=== PATIENT | female | born 1965 ===

== ENCOUNTER 2020-06-26 09:30 | Outpatient (REF) | payer OTHER, SELFPAY ==
[2020-06-26 10:08] LABS: MANUAL DIFF FLAG NO
[2020-06-26 10:09] LABS: Basophils Percent Auto 0.6 % (0-2); Eosinophils Absolute Auto 0.3 X10*3/uL (0.0-0.4); Eosinophils Percent Auto 3.9 % (0-4); Hematocrit 41.1 % (37-47); Hemoglobin 13.4 g/dl (12.0-16.0); Imm Gran Abs Auto 0.03 X10*3/uL (0.00-0.03); Imm Gran Pct Auto 0.4 % (0.0-0.4); Lymphocytes Absolute Auto 3.5 X10*3/uL (1.2-4.9); Mean Corpuscular HGB Conc 32.6 g/dl (31.0-35.0); Mean Corpuscular Hemoglobin 30.6 pg (27.0-33.0); Mean Corpuscular Volume 93.8 fL (80-98); Monocytes Absolute Auto 0.5 X10*3/uL (0.1-1.2); Monocytes Percent Auto 6.4 % (2-11); Neutrophils Absolute Auto 2.9 X10*3/uL (2.0-8.3); Neutrophils Percent Auto 40.7 % (45-73); Platelet Count 249 X10*3/uL (160-400); Red Blood Count 4.38 X10*6/uL (4.20-5.50); Red Cell Distribution Width 13.2 % (11.0-16.0); White Blood Count 7.2 X10*3/uL (4.8-10.8)
[2020-06-26 10:56] LABS: Alanine Aminotransferase 33 U/L (0-31); Albumin Level 4.4 g/dL (3.5-5.0); Alkaline Phosphatase 130 U/L (39-117); Anion Gap 16 (12-20); Aspartate Amino Transferase 17 U/L (5-31); Bilirubin Total 0.5 mg/dL (0.0-1.0); Blood Urea Nitrogen 12 mg/dL (9-16); Calcium 9.9 mg/dL (8.4-10.2); Carbon Dioxide 24 mmol/L (22-29); Chloride 104 mmol/L (96-108); Cholesterol 253 mg/dL; Estimated Glomerular Filt Rate > 60; Glucose Fasting 98 mg/dL (60-99); HDL Cholesterol 33 mg/dL; Iron 73 mcg/dL (30-160); Percent Iron Saturation 19 % (15-50); Potassium 4.5 mmol/l (3.3-5.1); Sodium 139 mmol/L (135-145); Total Iron Binding Capacity 379 mcg/dL (228-428); Total Protein 7.6 g/dL (6.5-8.0); Triglycerides 689 mg/dL; Unsaturated Iron Binding 306 ug/dL
[2020-06-26 11:17] LABS: Ferritin 150 ng/mL (10-250); Vitamin D 25-OH Total 17.2 ng/mL (>30)
[2020-06-26 11:52] LABS: Vitamin B12 383 pg/mL (200-900)
== END 2020-06-26 09:31 | disposition home or self-care (01) ==
LOC: HO.LAB 09:30
PROVIDERS: PCP Internal Medicine; Visit Provider Internal Medicine
DX: E78.2 Mixed hyperlipidemia (principal); E53.8 Deficiency of other specified B group vitamins; E55.9 Vitamin D deficiency, unspecified; D50.0 Iron deficiency anemia secondary to blood loss (chronic)
CPT/HCPCS: 36415; 80053; 80061; 82306; 82607; 82728; 82746; 83540; 85025

== ENCOUNTER 2020-07-27 08:38 | Outpatient (REF) | payer OTHER, SELFPAY ==
[2020-07-27 09:01] LABS: MANUAL DIFF FLAG NO
[2020-07-27 09:03] LABS: Basophils Percent Auto 0.4 % (0-2); Eosinophils Absolute Auto 0.3 X10*3/uL (0.0-0.4); Eosinophils Percent Auto 4.7 % (0-4); Hematocrit 41.1 % (37-47); Hemoglobin 13.4 g/dl (12.0-16.0); Imm Gran Abs Auto 0.02 X10*3/uL (0.00-0.03); Imm Gran Pct Auto 0.3 % (0.0-0.4); Lymphocytes Absolute Auto 3.1 X10*3/uL (1.2-4.9); Lymphocytes Percent Auto 44.6 % (20-40); Mean Corpuscular HGB Conc 32.6 g/dl (31.0-35.0); Mean Corpuscular Hemoglobin 30.7 pg (27.0-33.0); Mean Corpuscular Volume 94.1 fL (80-98); Mean Platelet Volume 11.3 fL (9.4-12.3); Monocytes Absolute Auto 0.4 X10*3/uL (0.1-1.2); Monocytes Percent Auto 5.7 % (2-11); Neutrophils Absolute Auto 3.1 X10*3/uL (2.0-8.3); Neutrophils Percent Auto 44.3 % (45-73); Platelet Count 277 X10*3/uL (160-400); Red Blood Count 4.37 X10*6/uL (4.20-5.50); Red Cell Distribution Width 12.5 % (11.0-16.0); White Blood Count 6.9 X10*3/uL (4.8-10.8)
[2020-07-27 09:23] LABS: Alanine Aminotransferase 40 U/L (0-31); Albumin Level 4.6 g/dL (3.5-5.0); Alkaline Phosphatase 133 U/L (39-117); Anion Gap 14 (12-20); Aspartate Amino Transferase 21 U/L (5-31); Bilirubin Total 0.3 mg/dL (0.0-1.0); Blood Urea Nitrogen 11 mg/dL (9-16); Calcium 9.8 mg/dL (8.4-10.2); Carbon Dioxide 24 mmol/L (22-29); Chloride 104 mmol/L (96-108); Cholesterol 173 mg/dL; Estimated Glomerular Filt Rate > 60; Glucose Fasting 115 mg/dL (60-99); HDL Cholesterol 31 mg/dL; LDL Cholesterol Calculated 68 mg/dl; Potassium 4.4 mmol/l (3.3-5.1); Sodium 138 mmol/L (135-145); Total Protein 7.6 g/dL (6.5-8.0); Triglycerides 370 mg/dL
[2020-07-27 10:11] LABS: Folate 11.1 ng/mL (> or = 4.0); Vitamin B12 680 pg/mL (200-900)
[2020-07-27 10:38] LABS: Creatinine Urine 33.32 mg/dL
[2020-07-30 14:12] LABS: Vitamin D 25-OH, D2 16 ng/mL; Vitamin D 25-OH, D3 11 ng/mL; Vitamin D 25-OH, Total 27 ng/mL (30-100)
[2020-08-02 13:28] LABS: Apolipoprotein B 97 mg/dL (<90)
[2020-08-05 16:22] LABS: Lipoprotein A 11 nmol/L (<75)
== END 2020-07-27 08:39 | disposition home or self-care (01) ==
LOC: HO.LAB 08:38
PROVIDERS: PCP Internal Medicine; Visit Provider Internal Medicine
DX: E11.9 Type 2 diabetes mellitus without complications (principal); E78.2 Mixed hyperlipidemia; E53.8 Deficiency of other specified B group vitamins; E78.5 Hyperlipidemia, unspecified; E55.9 Vitamin D deficiency, unspecified
CPT/HCPCS: 36415; 80053; 80061; 82043; 82172; 82306; 82607; 82746; 83695; 85025

== ENCOUNTER → 2020-08-02 09:36 | Outpatient (BNVA) | payer OTHER, SELFPAY | PROVIDERS: PCP Internal Medicine; Visit Provider Internal Medicine | DX: I35.8 Other nonrheumatic aortic valve disorders (principal); E78.2 Mixed hyperlipidemia; E11.8 Type 2 diabetes mellitus with unspecified complications | CPT/HCPCS: 93005; 99202 ==

== ENCOUNTER → 2020-09-01 07:59 | Outpatient (REF) | payer OTHER, SELFPAY ==
--- NOTE | 2020-09-01 08:03 | CA_ITS ---
Transthoracic Echocardiogram Patient (Last, First, Middle): Padma Castro, Gender: Female Date of : 1965 Age: 55 Procedure Date: 09/01/2020 Procedure Type: Transthoracic Echocardiogram Location: OP Height: 157.48 cm Weight: 93.9 kg BSA: 1.94 m2 Heart Rate: bpm BP: 122 / 80 mmHg Instructor Pilot: LAKE Referring MD: Shravan Dunn MD Radar Signal Processing Engineer: Steve Murillo MD Symptoms: I25.10 - Atherosclerotic heart disease of [place] coronary artery without angina pectoris Study Quality: Fair ECG Rhythm: Sinus Conclusions: - Essentially normal study Findings Procedure Information Contrast agent, definity, is being given per protocol without apparent complications. Left Ventricle Normal left ventricular size, thickness, and systolic function. The visually estimated ejection fraction is between 65-70%. Diastolic function is normal for age. Right Ventricle Normal right ventricular cavity size and systolic function. Atria Both atria are normal in size. There is no evidence of interatrial shunt. Aortic Valve Normal aortic valve structure and function. There is no aortic valve stenosis. There is no aortic valve regurgitation. Mitral Valve Normal mitral valve structure and function. There is trace mitral valve regurgitation. There is no mitral valve stenosis. Pulmonic Valve The pulmonic valve was not well visualized. Tricuspid Valve Likely normal tricuspid valve structure and function. Tricuspid regurgitation envelope is inadequate for calculation of right ventricular systolic pressure. Great Vessels All visible segments of the aorta are normal in size. The pulmonary artery was not well visualized. Venous The inferior vena cava is normal in size and collapses greater than 50% with inspiration. Pericardium/Pleural There is no evidence of pericardial effusion. Prior Study Comparison No previous study in the last 5 years for comparison Measurements M-Mode Liner Measurements Normals - Women/Men AOV Cusps: 2.10 1.5-2.6 cm/m2 2D Linear Measurements IVSd: 0.85 0.6-0.9/0.6-1.0 cm LVIDd: 4.79 3.9-5.3/4.2-5.9 cm LVIDd Index: 2.47 2.4-3.2/2.2-3.1 cm/m2 LVIDs: 2.31 2.0-3.6 cm LVPWd: 0.94 0.7-1.1 cm Ao Root: 2.70 2.1-3.5 cm LA Diam: 3.40 2.7-3.8/3.0-4.0 cm LAIDs Index: 1.75 1.5-2.3 cm/m2 LV Mass: 181.85 67-162/88-224 g LV Mass Index: 93.74 43-95/49-115 g/m2 LVOT Diam: 2.40 3.0+(-)1.3 cm 2D Systolic Function EF 4C: 71.50 >55% EF 2C: 79.10 >55% Mitral Valve MV Pk E: 0.97 MV PK A: 0.89 MV Decel Time: 220.00 E/A: 1.10 E'Lateral: 8.49 E'Medial: 7.83 E/E' Med: 12.40 E/E' Lat: 11.50 PHT: 64.00 MVA PHT: 3.44 Decel Scott: 4.43 Aortic Valve AoV Pk Vishal: 2.04 AoV Pk Grad: 17.00 LVOT LVOT Pk Vishal: 1.09 LVOT Mn Vishal: 0.70 LVOT VTI: 0.22 LVOT Pk Grad: 5.00 LVOT Mn Grad: 2.00 LVOT Diam: 2.40 LVOT Area: 4.52 Diastolic Function MV Pk E: 0.97 MV Pk A: 0.89 E/A: 1.10 E'Medial: 7.83 E/E' Med: 12.40 E' Laterial: 8.49 E/E' Lat: 11.50 Great Vessels Aorta Ao Root-2D: 2.70 2.0-3.7 cm Ao Asc: 3.70 2.1-3.4 cm Ao Arch: 2.30 Pulmonary Valve PV Pk Vishal: 1.44 Peak PV Grad: 8.00 Updated in Other Vendor System with Status of Final Steve Murillo MD electronically signed on 09/02/2020 11:00:22 AM with status of Final
--- NOTE | 2020-09-01 08:03 | CA_ITS ---
Acquisition Time: 2020-09-01 10:18:29 Total Exercise Time: 00:01:47 Test Indications: e11.9 Medications: SEE CHART Protocol: ADAM Max HR: 141 BPM 85% of Pred: 165 BPM Max BP: 160/070 mmHG Max Work Load: 4.1 METS Pt unable to finish the test as she became SOB and very tired. Pt requested to terminate the test. Pt exercised for total of 1 min 47 sec. This is inconclusive stress test I will order pharmacological stress test. discussed it with Dr. Dunn Referred By: Shravan Dunn Overread By: Meliton Seymour
== END ==
LOC: HO.CARD 07:59
PROVIDERS: Visit Provider Internal Medicine
DX: I25.10 Atherosclerotic heart disease of native coronary artery without angina pectoris (principal); E11.9 Type 2 diabetes mellitus without complications
CPT/HCPCS: 93017; 93306; Q9957

== ENCOUNTER → 2020-09-13 09:27 | Outpatient (REF) | payer OTHER, SELFPAY ==
--- NOTE | ~2020-09-13 | NM_ITS ---
Lexiscan Myocardial perfusion study Indication: Diabetes, dyslipidemia, assess for coronary disease and ischemia Technique: The patient was brought in for a Lexiscan perfusion study on 09/13/2020 and was injected 0.4 mg of Lexiscan intravenously. Within a minute of this injection 30 mCi of sestamibi was given intravenously. Images were obtained using the SPECT gamma camera interlaced with the gating device. Images were obtained in supine position. Resting perfusion study was performed on 09/14/2020. Patient was administered 30 mCi of sestamibi intravenously at rest. Images were then obtained in supine position. Total DLP 87mGy-cm. Images were processed with the software and compared side to side in short axis, horizontal long axis and vertical long axis views. Findings: Raw acquisition was reviewed. The stress perfusion study showed no significant perfusion abnormality. Both uncorrected as well as CT attenuation corrected images were reviewed. The gated study shows normal LV systolic function with calculated LVEF of 68%. LV cavity is normal in size. The gated study shows normal wall thickening and contraction of segments. Resting study shows no significant perfusion abnormality. Gating at rest reveals normal wall motion with ejection fraction at 75%. The findings are consistent with no reversible or fixed perfusion abnormality. NM/NM vikas perf SPECT rest & str Impression: 1. Myocardial perfusion imaging study shows normal myocardial perfusion. 2. Gated LVEF is 68% during stress and 75% during rest. 3. Transient ischemic dilatation not present. EKG component of the test reported separately.
--- NOTE | 2020-09-13 09:30 | CA_ITS ---
Acquisition Time: 2020-09-13 09:41:39 Total Exercise Time: 00:02:00 Test Indications: I25.10, E11.8 Medications: SEE CHART Protocol: LEXISCAN Max HR: 109 BPM 66% of Pred: 165 BPM Max BP: 134/076 mmHG Max Work Load: 1.0 METS Pharmacological stress test with Lexiscan injection, while sitting and kicking her legs, without anginal symptoms, with isolated PACs and one 3 beat atrial run, with normotensive response to injection, with nondiagnostic EKG for ischemia. In recovery she reported body aches that persisted even after 7 min and she was given Aminophylline 75mg IVP to reverese Lexiscan with improvement in symptom. Nuclear images pending. Test reviewed with Dr Murillo. Referred By: Dawn Lawler Overread By: GAURI MCCARTNEY
== END ==
LOC: HO.CARD 09:27
PROVIDERS: Visit Provider Nurse Practitioner Family
DX: I25.10 Atherosclerotic heart disease of native coronary artery without angina pectoris (principal); E11.8 Type 2 diabetes mellitus with unspecified complications
CPT/HCPCS: 78452; 93017; A9500; J0280; J2785

== ENCOUNTER → 2020-09-14 13:21 | Outpatient (BNVA) | payer OTHER, SELFPAY | PROVIDERS: PCP Internal Medicine; Visit Provider Internal Medicine | DX: E78.2 Mixed hyperlipidemia (principal); E11.8 Type 2 diabetes mellitus with unspecified complications | CPT/HCPCS: 99212 ==

== ENCOUNTER 2020-11-21 10:06 | Outpatient (REF) | payer OTHER, SELFPAY ==
--- NOTE | ~2020-11-21 | XR_ITS ---
EXAMINATION: XR BILATERAL KNEE CLINICAL INFORMATION: Bilateral knee pain. COMPARISON: None. TECHNIQUE: 4 views each knee. FINDINGS: Right Knee: There is mild reduction in the medial and patellofemoral compartment joint space without any bony erosive changes or loose bodies. There is mild superior patellar spurring. No abnormal joint effusion seen. Left Knee: There is mild reduction in the medial and patellofemoral compartment joint space with superior patellar spurring. No loose bodies, joint effusion or bony erosive changes seen. XR/XR knee LT 4V IMPRESSION: Mild degenerative changes medial and patellofemoral compartments without bony erosive changes, loose bodies or joint effusion. There is mild bilateral superior patellar spurring.
--- NOTE | ~2020-11-21 | XR_ITS ---
EXAMINATION: XR BILATERAL KNEE CLINICAL INFORMATION: Bilateral knee pain. COMPARISON: None. TECHNIQUE: 4 views each knee. FINDINGS: Right Knee: There is mild reduction in the medial and patellofemoral compartment joint space without any bony erosive changes or loose bodies. There is mild superior patellar spurring. No abnormal joint effusion seen. Left Knee: There is mild reduction in the medial and patellofemoral compartment joint space with superior patellar spurring. No loose bodies, joint effusion or bony erosive changes seen. XR/XR knee RT 4V IMPRESSION: Mild degenerative changes medial and patellofemoral compartments without bony erosive changes, loose bodies or joint effusion. There is mild bilateral superior patellar spurring.
== END 2020-11-21 10:07 | disposition home or self-care (01) ==
LOC: HO.XRAY 10:06
PROVIDERS: PCP Internal Medicine; Visit Provider Internal Medicine
DX: M25.562 Pain in left knee (principal); M25.561 Pain in right knee
CPT/HCPCS: 73564

== ENCOUNTER 2021-01-23 09:40 | Outpatient (REF) | payer OTHER, SELFPAY ==
[2021-01-23 10:20] LABS: MANUAL DIFF FLAG NO
[2021-01-23 10:28] LABS: Basophils Percent Auto 0.7 % (0-2); Eosinophils Absolute Auto 0.4 X10*3/uL (0.0-0.4); Hematocrit 42.7 % (37-47); Hemoglobin 13.9 g/dl (12.0-16.0); Imm Gran Abs Auto 0.02 X10*3/uL (0.00-0.03); Imm Gran Pct Auto 0.4 % (0.0-0.4); Lymphocytes Percent Auto 54.8 % (20-40); Mean Corpuscular HGB Conc 32.6 g/dl (31.0-35.0); Mean Corpuscular Hemoglobin 30.4 pg (27.0-33.0); Mean Corpuscular Volume 93.4 fL (80-98); Mean Platelet Volume 11.5 fL (9.4-12.3); Monocytes Absolute Auto 0.3 X10*3/uL (0.1-1.2); Monocytes Percent Auto 6.1 % (2-11); Neutrophils Absolute Auto 1.7 X10*3/uL (2.0-8.3); Platelet Count 270 X10*3/uL (160-400); Red Blood Count 4.57 X10*6/uL (4.20-5.50); Red Cell Distribution Width 12.4 % (11.0-16.0); White Blood Count 5.6 X10*3/uL (4.8-10.8)
[2021-01-23 11:04] LABS: Alanine Aminotransferase 43 U/L (0-31); Albumin Level 4.8 g/dL (3.5-5.0); Alkaline Phosphatase 124 U/L (39-117); Anion Gap 15 (12-20); Aspartate Amino Transferase 26 U/L (5-31); Bilirubin Total 0.5 mg/dL (0.0-1.0); Blood Urea Nitrogen 12 mg/dL (9-16); Carbon Dioxide 22 mmol/L (22-29); Chloride 107 mmol/L (96-108); Cholesterol 209 mg/dL; Estimated Glomerular Filt Rate > 60; Glucose Fasting 110 mg/dL (60-99); HDL Cholesterol 40 mg/dL; Potassium 4.9 mmol/L (3.3-5.1); Sodium 139 mmol/L (135-145); Total Protein 8.1 g/dL (6.5-8.0); Triglycerides 414 mg/dL
[2021-01-23 11:10] LABS: Calcium 10.6 mg/dL (8.4-10.2)
[2021-01-23 11:17] LABS: Folate 17.1 ng/mL (> or = 4.0); Vitamin B12 365 pg/mL (200-900)
[2021-01-23 12:10] LABS: Creatinine Urine 38.62 mg/dL
[2021-01-27 19:32] LABS: Vitamin D 25-OH, D2 14 ng/mL; Vitamin D 25-OH, D3 11 ng/mL; Vitamin D 25-OH, Total 25 ng/mL (30-100)
== END 2021-01-23 09:41 | disposition home or self-care (01) ==
LOC: HO.LAB 09:40
PROVIDERS: PCP Internal Medicine; Visit Provider Internal Medicine
DX: E11.8 Type 2 diabetes mellitus with unspecified complications (principal); D64.9 Anemia, unspecified; E53.8 Deficiency of other specified B group vitamins; E78.5 Hyperlipidemia, unspecified; E55.9 Vitamin D deficiency, unspecified
CPT/HCPCS: 36415; 80053; 80061; 82043; 82306; 82607; 82746; 85025

== ENCOUNTER 2021-09-26 08:52 | Outpatient (REF) | payer OTHER, SELFPAY ==
[2021-09-26 10:13] LABS: Hematocrit 42.9 % (37.0-47.0); Hemoglobin 13.6 g/dl (12.0-16.0); Mean Corpuscular HGB Conc 31.7 g/dl (31.0-35.0); Mean Corpuscular Hemoglobin 29.7 pg (27.0-33.0); Mean Corpuscular Volume 93.7 fL (80.0-98.0); Mean Platelet Volume 11.9 fL (9.4-12.3); Platelet Count 241 X10*3/uL (160-400); Red Blood Count 4.58 X10*6/uL (4.20-5.50); Red Cell Distribution Width 12.7 % (11.0-16.0); White Blood Count 5.5 X10*3/uL (4.8-10.8)
[2021-09-26 10:54] LABS: Alanine Aminotransferase 50 U/L (0-31); Albumin Level 4.7 g/dL (3.5-5.0); Alkaline Phosphatase 105 U/L (39-117); Anion Gap 15 (12-20); Aspartate Amino Transferase 35 U/L (5-31); Bilirubin Total 0.4 mg/dL (0.0-1.0); Blood Urea Nitrogen 14 mg/dL (9-16); Calcium 10.6 mg/dL (8.4-10.2); Carbon Dioxide 25 mmol/L (22-29); Chloride 102 mmol/L (96-108); Cholesterol 308 mg/dL; Estimated Glomerular Filt Rate > 60; Glucose Fasting 137 mg/dL (60-99); HDL Cholesterol 39 mg/dL; Sodium 137 mmol/L (135-145); Triglycerides 799 mg/dL
[2021-09-26 11:01] LABS: TSH reflex Free T4 0.51 uIU/mL (0.32-4.0)
== END 2021-09-26 08:53 | disposition home or self-care (01) ==
LOC: HO.LAB 08:52
PROVIDERS: PCP Physician Assistant; Visit Provider Physician Assistant
DX: E11.8 Type 2 diabetes mellitus with unspecified complications (principal)
CPT/HCPCS: 36415; 80053; 80061; 84443; 85027

== ENCOUNTER → 2021-11-13 10:46 | Outpatient (BNVA) | payer OTHER, SELFPAY | PROVIDERS: PCP Internal Medicine; Visit Provider Internal Medicine Endocrinology, Diabetes & Metabolism | DX: E78.2 Mixed hyperlipidemia (principal); Z79.899 Other long term (current) drug therapy | CPT/HCPCS: 99202 ==

== ENCOUNTER → 2021-12-19 11:15 | Outpatient (BNVA) | payer OTHER, SELFPAY | PROVIDERS: PCP Internal Medicine; Visit Provider Dietitian, Registered | DX: E11.8 Type 2 diabetes mellitus with unspecified complications (principal) | CPT/HCPCS: 97802 ==

== ENCOUNTER → 2021-12-26 12:25 | Outpatient (BNVA) | payer OTHER, SELFPAY | PROVIDERS: PCP Internal Medicine; Referring Provider Internal Medicine; Visit Provider Internal Medicine | DX: R07.2 Precordial pain (principal); E11.9 Type 2 diabetes mellitus without complications; E66.01 Morbid (severe) obesity due to excess calories; Z68.41 Body mass index [BMI] 40.0-44.9, adult; E78.2 Mixed hyperlipidemia; F17.210 Nicotine dependence, cigarettes, uncomplicated | CPT/HCPCS: 93005; 99212 ==

== ENCOUNTER → 2022-01-09 09:45 | Outpatient (REF) | payer OTHER, SELFPAY ==
--- NOTE | ~2022-01-09 | NM_ITS ---
Myocardial perfusion study Indication: Precordial chest pain Technique: The patient was brought in for a Lexiscan perfusion study on 01/09/2022. Patient performed low-level exercise and was injected 0.4 mg of Lexiscan intravenously. Within a minute of injection, 35 mCi of sestamibi was given intravenously. Images were obtained using the SPECT gamma camera interlaced with the gating device. Images were obtained in supine position. Resting perfusion study was performed on 01/10/2022. Patient was administered 35 mCi of sestamibi intravenously at rest. Images were then obtained in supine position. Images obtained with and without CT attenuation. Total DLP 103 mGy-cm. Images were processed with the software and compared side to side in short axis, horizontal long axis and vertical long axis views. Findings: The stress perfusion study showed non attenuated images show minimal thinning of the anterior wall of the LV myocardium. Remainder of the LV myocardium is normally perfused. Attenuation corrected images show normal uptake of radiotracer in all segments of LV myocardium. There is suggestion of left ventricle hypertrophy. The gated study shows normal LV systolic function with calculated LVEF of 68%. LV cavity is normal in size. The gated study shows normal systolic wall thickening and contraction of segments. Resting study shows no significant change in perfusion compared to stress perfusion study. Gating at rest reveals normal systolic wall motion with ejection fraction at 67%. The findings are consistent with normal myocardial perfusion. NM/NM cardiolite stress test Impression: 1. Myocardial perfusion imaging study shows normal myocardial perfusion 2. Gated LVEF is 68% 3. Transient ischemic dilatation not present EKG is nondiagnostic for ischemia
--- NOTE | 2022-01-09 09:50 | CA_ITS ---
Acquisition Time: 2022-01-09 09:49:22 Total Exercise Time: 00:02:00 Test Indications: cp Medications: see chart Protocol: LEXISCAN Max HR: 144 BPM 87% of Pred: 164 BPM Max BP: 138/068 mmHG Max Work Load: 1.6 METS Pharmacological stress test with Lexiscan injectiion, while walking slow on treadmill for 2 min, without anginal symptoms, with isolated PAC, one atrial cuplet then PVC, with normotensive response to injection, with heart rate reaching 87% MPHR without ischemic changes noted. In recovery she reported dizziness that was treated with Aminophylline 75mg IVP to reverse Lexican with resolution of symptom. Nuclear images pending. Note: test was ordered as exercise nuclear and pt report she is unable to exercise on treadmill due to bilateral knee arthritis, so it was changed to a pharmacological test. test reviewed with Dr Murillo. Referred By: Shravan Dunn Overread By: GAURI MCCARTNEY
== END ==
LOC: HO.CARD 09:45
PROVIDERS: Visit Provider Internal Medicine
DX: R07.2 Precordial pain (principal)
CPT/HCPCS: 78452; 93017; A9500; J0280; J2785

== ENCOUNTER → 2022-02-01 10:13 | Outpatient (REF) | payer OTHER, SELFPAY ==
--- NOTE | 2022-02-01 10:16 | CA_ITS ---
Transthoracic Echocardiogram Patient (Last, First, Middle): Padma Castro, Gender: Female Date of : 1965 Age: 56 Procedure Date: 02/01/2022 Procedure Type: Transthoracic Echocardiogram Location: OP Height: 157.48 cm Weight: 100.7 kg BSA: 2.00 m2 Heart Rate: bpm BP: 120 / 76 mmHg Customer Service Driver: TO Referring MD: Shravan Dunn MD Color Tester: Steve Murillo MD Symptoms: R07.2 - Precordial pain Study Quality: Fair/Contrast ECG Rhythm: Sinus Conclusions: - 1. Normal LV systolic function with impaired relaxation filling pattern 2. Cardiac valvular Doppler within normal limits 3. Mildly dilated ascending aorta at 4 cm 4. Dhruman3% No gross pericardial effusion Findings Procedure Information Contrast agent, definity, is being given per protocol without apparent complications. Left Ventricle Normal left ventricular size, thickness, and systolic function. The visually estimated ejection fraction is between 60-65%. Spectral Doppler is indicative of an impaired relaxation filling pattern. E/E prime ratio is between 8 and 15 consistent with indeterminate filling pressures. Right Ventricle Normal right ventricular cavity size and systolic function. Atria The left atrium is likely dilated. There is lipomatous hypertrophy of the interatrial septum. Interatrial shunt cannot be excluded. The right atrium is likely dilated. Aortic Valve The aortic valve was not well visualized. There is no aortic valve stenosis. There is no aortic valve regurgitation. Mitral Valve There is mild anterior mitral leaflet thickening. There is mild mitral annular calcification. There is trace mitral valve regurgitation. There is no mitral valve stenosis. Pulmonic Valve The pulmonic valve was not well visualized. Tricuspid Valve Likely normal tricuspid valve structure and function. Tricuspid regurgitation envelope is inadequate for calculation of right ventricular systolic pressure. Normal right atrial pressure. Great Vessels The pulmonary artery was not well visualized. There is mild dilatation of the ascending aorta measuring 4.00 cm. Venous The inferior vena cava is normal in size and collapses greater than 50% with inspiration. Pericardium/Pleural There is no evidence of pericardial effusion. Prior Study Comparison Changes noted compared to prior study dated: 09/01/2020. ascending aorta is mildly dilated Measurements 2D Linear Measurements IVSd: 1.02 0.6-0.9/0.6-1.0 cm LVIDd: 5.02 3.9-5.3/4.2-5.9 cm LVIDd Index: 2.51 2.4-3.2/2.2-3.1 cm/m2 LVIDs: 2.60 2.0-3.6 cm LVPWd: 1.05 0.7-1.1 cm LA Diam: 3.90 2.7-3.8/3.0-4.0 cm LAIDs Index: 1.95 1.5-2.3 cm/m2 LV Mass: 239.09 67-162/88-224 g LV Mass Index: 119.55 43-95/49-115 g/m2 LVOT Diam: 2.00 3.0+(-)1.3 cm 2D Systolic Function EF 4C: 58.60 >55% EF 2C: 68.20 >55% EF BiP: 63.50 >55% Mitral Valve MV Pk E: 0.81 MV PK A: 0.85 MV Decel Time: 258.00 E/A: 1.00 E'Lateral: 8.16 E'Medial: 6.09 E/E' Med: 13.20 E/E' Lat: 9.90 PHT: 75.00 MVA PHT: 2.93 Decel Reagan: 3.13 Aortic Valve AoV Pk Vishal: 1.99 AoV Mn Vishal: 1.38 AoV VTI: 0.38 AoV Pk Grad: 16.00 Aov Mn Grad: 9.00 ILANA Cont.VTI: 2.37 LVOT LVOT Pk Vishal: 1.53 LVOT Mn Vishal: 1.00 LVOT VTI: 0.28 LVOT Pk Grad: 9.00 LVOT Mn Grad: 5.00 LVOT Diam: 2.00 LVOT Area: 3.14 Diastolic Function MV Pk E: 0.81 MV Pk A: 0.85 E/A: 1.00 E'Medial: 6.09 E/E' Med: 13.20 E' Laterial: 8.16 E/E' Lat: 9.90 Right Ventricle TAPSE (mm): 22.20 TVS' Vishal: 16.40 Tricuspid Valve TR Pk Vishal: 2.35 TR Pk Grad: 22.00 Great Vessels Aorta Sinus of Valsalva: 3.66 2.0-3.[address] [place]: 2.98 1.7-3.4 cm Ao Asc: 4.00 2.1-3.4 cm Ao Arch: 3.40 Updated in Other Vendor System with Status of Final Steve Murillo MD electronically signed on 02/03/2022 1:00:33 PM with status of Final
== END ==
LOC: HO.CARD 10:13
PROVIDERS: PCP Internal Medicine; Visit Provider Internal Medicine
DX: R07.2 Precordial pain (principal)
CPT/HCPCS: 93306; Q9957

== ENCOUNTER → 2022-02-08 11:00 | Outpatient (BNVA) | payer OTHER, SELFPAY | PROVIDERS: PCP Internal Medicine; Visit Provider Dietitian, Registered | DX: E11.8 Type 2 diabetes mellitus with unspecified complications (principal); Z71.3 Dietary counseling and surveillance | CPT/HCPCS: 97803 ==

== ENCOUNTER 2022-03-04 07:26 | Outpatient (REF) | payer OTHER, SELFPAY ==
[2022-03-04 08:33] LABS: Alanine Aminotransferase 58 U/L (0-31); Albumin Level 4.9 g/dL (3.5-5.0); Alkaline Phosphatase 107 U/L (39-117); Anion Gap 18 (12-20); Aspartate Amino Transferase 31 U/L (5-31); Bilirubin Total 0.4 mg/dL (0.0-1.0); Blood Urea Nitrogen 14 mg/dL (9-16); Calcium 10.7 mg/dL (8.4-10.2); Carbon Dioxide 22 mmol/L (22-29); Chloride 105 mmol/L (96-108); Cholesterol 239 mg/dL; Estimated Glomerular Filt Rate > 60; Glucose Fasting 155 mg/dL (60-99); HDL Cholesterol 36 mg/dL; Potassium 4.9 mmol/L (3.3-5.1); Sodium 140 mmol/L (135-145); Total Protein 8.2 g/dL (6.5-8.0); Triglycerides 552 mg/dL
[2022-03-04 08:53] LABS: Vitamin D 25-OH Total 28.6 ng/mL (>30)
[2022-03-04 09:05] LABS: Folate 17.9 ng/mL (> or = 4.0); Vitamin B12 322 pg/mL (200-900)
[2022-03-08 13:08] LABS: Apolipoprotein B 132 mg/dL (<90)
[2022-03-12 03:46] LABS: Lipoprotein A <10 nmol/L (<75)
== END 2022-03-04 07:27 | disposition home or self-care (01) ==
LOC: HO.LAB 07:26
PROVIDERS: PCP Internal Medicine; Visit Provider Internal Medicine Endocrinology, Diabetes & Metabolism
DX: E78.2 Mixed hyperlipidemia (principal); E11.9 Type 2 diabetes mellitus without complications; E55.9 Vitamin D deficiency, unspecified; E53.8 Deficiency of other specified B group vitamins
CPT/HCPCS: 36415; 80053; 80061; 82172; 82306; 82607; 82746; 83695

== ENCOUNTER → 2022-03-05 10:00 | Outpatient (BNVA) | payer OTHER, SELFPAY | PROVIDERS: PCP Internal Medicine; Referring Provider Internal Medicine; Visit Provider Internal Medicine | DX: R07.2 Precordial pain (principal); E11.8 Type 2 diabetes mellitus with unspecified complications; E66.01 Morbid (severe) obesity due to excess calories; Z68.41 Body mass index [BMI] 40.0-44.9, adult; E78.2 Mixed hyperlipidemia; I77.89 Other specified disorders of arteries and arterioles; Z79.899 Other long term (current) drug therapy | CPT/HCPCS: 99212 ==

== ENCOUNTER → 2022-03-13 08:41 | Outpatient (BNVA) | payer OTHER, SELFPAY | PROVIDERS: PCP Internal Medicine; Visit Provider Internal Medicine Endocrinology, Diabetes & Metabolism | DX: E78.2 Mixed hyperlipidemia (principal); E11.9 Type 2 diabetes mellitus without complications; Z79.84 Long term (current) use of oral hypoglycemic drugs; Z79.899 Other long term (current) drug therapy | CPT/HCPCS: 83036; 99212 ==

== ENCOUNTER → 2022-03-14 10:37 | Outpatient (BNVA) | payer OTHER, SELFPAY | PROVIDERS: PCP Internal Medicine; Visit Provider Registered Nurse Diabetes Educator | DX: E11.8 Type 2 diabetes mellitus with unspecified complications (principal); E78.2 Mixed hyperlipidemia | CPT/HCPCS: 99211 ==

== ENCOUNTER → 2022-03-29 10:07 | Outpatient (BNVA) | payer OTHER, SELFPAY | PROVIDERS: PCP Internal Medicine; Visit Provider Dietitian, Registered | DX: E11.8 Type 2 diabetes mellitus with unspecified complications (principal) | CPT/HCPCS: 97803 ==

== ENCOUNTER → 2022-04-11 11:00 | Outpatient (BNVA) | payer OTHER, SELFPAY | PROVIDERS: PCP Internal Medicine; Visit Provider Registered Nurse Diabetes Educator | DX: E11.9 Type 2 diabetes mellitus without complications (principal) | CPT/HCPCS: 99211 ==

== ENCOUNTER 2022-04-25 08:10 | Outpatient (REF) | payer OTHER, SELFPAY ==
[2022-04-25 10:31] LABS: Cholesterol 197 mg/dL; HDL Cholesterol 37 mg/dL; LDL Cholesterol Calculated 97 mg/dl; Triglycerides 319 mg/dL
== END 2022-04-25 08:11 | disposition home or self-care (01) ==
LOC: HO.LAB 08:10
PROVIDERS: PCP Internal Medicine; Visit Provider Internal Medicine Endocrinology, Diabetes & Metabolism
DX: E78.2 Mixed hyperlipidemia (principal)
CPT/HCPCS: 36415; 80061

== ENCOUNTER 2022-06-06 09:54 | Outpatient (REF) | payer OTHER, SELFPAY ==
--- NOTE | ~2022-06-06 | US_ITS ---
EXAMINATION: US ABDOMEN COMPLETE CLINICAL INFORMATION: Left upper quadrant pain. COMPARISON: None TECHNIQUE: Real-time imaging of the abdominal viscera. Technically difficult study secondary to body habitus. FINDINGS: PANCREAS: The visualized portions of the pancreas are unremarkable but a large portion of the gland is obscured by bowel gas. ABDOMINAL AORTA: Visualized portions are unremarkable. The distal aorta could not be seen. INFERIOR VENA CAVA: Visualized portions are normal. LIVER: The liver is normal in size. The liver contour is normal. No focal hepatic lesion. There is no intrahepatic biliary duct dilatation seen. GALLBLADDER: Surgically absent. COMMON BILE DUCT: Normal in caliber measuring 0.5 cm in diameter. RIGHT KIDNEY: Normal. No hydronephrosis. No renal calculi or focal parenchymal lesions. The kidney measures 12.6 cm in maximum dimension. LEFT KIDNEY: Normal. No hydronephrosis. No renal calculi or focal parenchymal lesions. The kidney measures 14.3 cm in maximum dimension. SPLEEN: Normal. The spleen measures 11.2 cm in maximum dimension. FREE FLUID: None. US/US abdomen complete IMPRESSION: No significant abnormality is detected.
== END 2022-06-06 09:55 | disposition home or self-care (01) ==
LOC: HO.US 09:54
PROVIDERS: Visit Provider Internal Medicine
DX: R10.12 Left upper quadrant pain (principal)
CPT/HCPCS: 76700

== ENCOUNTER → 2022-07-11 10:26 | Outpatient (BNVA) | payer OTHER, SELFPAY | PROVIDERS: PCP Internal Medicine; Visit Provider Internal Medicine Endocrinology, Diabetes & Metabolism | DX: E78.2 Mixed hyperlipidemia (principal) | CPT/HCPCS: 82947; 83036; 99212 ==

== ENCOUNTER 2022-08-20 09:58 | Outpatient (REF) | payer OTHER, SELFPAY ==
[2022-08-20 11:24] LABS: Alanine Aminotransferase 43 U/L (0-31); Albumin Level 4.6 g/dL (3.5-5.0); Alkaline Phosphatase 95 U/L (39-117); Anion Gap 15 (12-20); Aspartate Amino Transferase 37 U/L (5-31); Bilirubin Total 0.4 mg/dL (0.0-1.0); Blood Urea Nitrogen 14 mg/dL (9-16); Calcium 10.4 mg/dL (8.4-10.2); Carbon Dioxide 26 mmol/L (22-29); Chloride 106 mmol/L (96-108); Cholesterol 212 mg/dL; Estimated Glomerular Filt Rate > 60; Glucose Fasting 104 mg/dL (60-99); HDL Cholesterol 33 mg/dL; LDL Cholesterol Calculated 110 mg/dl; Potassium 4.8 mmol/L (3.3-5.1); Sodium 142 mmol/L (135-145); Total Protein 7.4 g/dL (6.5-8.0); Triglycerides 349 mg/dL
[2022-08-20 11:40] LABS: Folate 15.1 ng/mL (> or = 4.0); Vitamin B12 453 pg/mL (200-900); Vitamin D 25-OH Total 30.5 ng/mL (>30)
[2022-08-20 11:43] LABS: Creatinine Urine 51.47 mg/dL; Microalbum/Creatinine Ratio Ur 11.6 ug/mg cr
== END 2022-08-20 09:59 | disposition home or self-care (01) ==
LOC: HO.LAB 09:58
PROVIDERS: PCP Internal Medicine; Visit Provider Internal Medicine Endocrinology, Diabetes & Metabolism
DX: E78.5 Hyperlipidemia, unspecified (principal); E55.9 Vitamin D deficiency, unspecified; E53.8 Deficiency of other specified B group vitamins; E11.8 Type 2 diabetes mellitus with unspecified complications
CPT/HCPCS: 36415; 80053; 80061; 82043; 82306; 82607; 82746

== ENCOUNTER → 2022-11-12 10:37 | Outpatient (BNVA) | payer OTHER, SELFPAY | PROVIDERS: PCP Internal Medicine; Visit Provider Internal Medicine Endocrinology, Diabetes & Metabolism | DX: E78.2 Mixed hyperlipidemia (principal) | CPT/HCPCS: 99212 ==

== ENCOUNTER 2023-01-31 08:48 | Outpatient (REF) | payer OTHER, SELFPAY ==
[2023-01-31 09:56] LABS: Estimated Average Glucose 103 mg/dL; Hemoglobin A1c % 5.2 %
[2023-01-31 10:43] LABS: Alanine Aminotransferase 47 U/L (0-31); Albumin Level 4.6 g/dL (3.5-5.0); Alkaline Phosphatase 105 U/L (39-117); Anion Gap 13 (12-20); Aspartate Amino Transferase 30 U/L (5-31); Bilirubin Total 0.5 mg/dL (0.0-1.0); Blood Urea Nitrogen 15 mg/dL (9-16); Calcium 10.5 mg/dL (8.4-10.2); Carbon Dioxide 24 mmol/L (22-29); Chloride 107 mmol/L (96-108); Estimated Glomerular Filt Rate > 60; Glucose Fasting 93 mg/dL (60-99); Potassium 4.3 mmol/L (3.3-5.1); Sodium 140 mmol/L (135-145); Total Protein 7.7 g/dL (6.5-8.0)
[2023-01-31 10:46] LABS: Cholesterol 200 mg/dL; HDL Cholesterol 35 mg/dL; LDL Cholesterol Calculated 99 mg/dl; Triglycerides 334 mg/dL
[2023-01-31 11:03] LABS: Vitamin D 25-OH Total 31.9 ng/mL (>30)
[2023-01-31 12:04] LABS: Creatinine Urine 91.68 mg/dL; Microalbum/Creatinine Ratio Ur 11.9 ug/mg cr
== END 2023-01-31 08:49 | disposition home or self-care (01) ==
LOC: HO.LAB 08:48
PROVIDERS: Absent Provider Internal Medicine Endocrinology, Diabetes & Metabolism; PCP Internal Medicine; Visit Provider Internal Medicine
DX: E55.9 Vitamin D deficiency, unspecified (principal); E11.9 Type 2 diabetes mellitus without complications; E66.01 Morbid (severe) obesity due to excess calories; Z68.41 Body mass index [BMI] 40.0-44.9, adult; E78.2 Mixed hyperlipidemia
CPT/HCPCS: 36415; 80053; 80061; 82043; 82306; 83036

== ENCOUNTER 2023-02-05 09:34 | Outpatient (AMB) | payer OTHER, SELFPAY ==
--- NOTE | 2023-02-05 09:40 | A.OFFPC_ITS ---
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: No Accompanied by: Self / Same As Patient Allergies aspirin [Aspirin] Allergy (Mild, Verified 02/05/23 09:58) SWELLING Medication List - Last Reconciled 02/05/23 by Nolvia Bah MD atorvastatin 80 mg PO DAILY 90 days blood sugar diagnostic (FreeStyle Lite Strips) Use 1 test strip twice a day blood sugar diagnostic Use 1 test strip twice a day cholecalciferol (vitamin D3) 50 mcg PO DAILY dulaglutide (Trulicity) 1.5 mg (0.5 mL) subcut QWEEK fenofibrate micronized 200 mg PO DAILY 90 days icosapent ethyl (Vascepa) 2 grams (2 x 1 gram) PO BID lancets Use 1 lancet twice a day as needed metformin ER 500 mg PO BID 90 days pantoprazole 40 mg PO DAILY 90 days pioglitazone 45 mg PO DAILY 90 days simethicone 180 mg PO BID 30 days sucralfate 1 g PO BID 90 days triamcinolone acetonide 0.1% 1 appl topical DAILY 15 days Tobacco use date assessed: 02/05/23 Dental Screening Dental Screen Date: 02/05/23 Did you have a dental visit in the last 12 months?: No Did you have a dental problem in the last 6 months where you did not have access to dental care?: No Was dental information given to patient?: Patient has dentist HPI HPI Comments History of Present Illness Details This is a 57-year-old female with diabetes mellitus type 2, mixed hyperlipidemia, GERD and right knee osteoarthritis that complains of right knee pain that has been aggravated for the past month. She did a twisted movement and felt like something tear in her knee. A1c within goal. LDL close to goal. GERD stable with medications. I will order x-ray of the knee and start her on diclofenac gel. Denies any chest pain or shortness of breath. [facility] Medical History B12 deficiency Diabetes mellitus Hospital discharge follow-up Hypovitaminosis D Iron deficiency anemia Left knee pain Mixed hyperlipidemia Morbid obesity with BMI of 40.0-44.9, adult Precordial chest pain Right knee pain Type 2 diabetes mellitus with unspecified complications Surgical History History of laparoscopic cholecystectomy Family History Father Leukemia Mother Diabetes Hypertension CVD (cardiovascular disease) Sister Throat cancer Social History Housing: Apartment Alcohol intake: never Patient Tobacco Use Status: Current everyday Tobacco user Tobacco use type: Cigarette Cigarettes Per Day: 3 e-Cigarette/Vaping Use: Never Used Second Hand Smoke Exposure: No service: No Current occupational status: disabled Cognitive needs: No Hearing needs: No Vision needs: Yes Questionnaire Thrive Questionnaire Date Thrive assessed: 09/24/22 CHRISTIANO-7 AMB Questionnaire CHRISTIANO-7 Date CHRISTIANO - 7 assessed: 09/24/22 Source: Developed by Drs. Davidson Villarreal, Noreen Diego, Ezekiel Herrera and colleagues, with an educational jaxon from [employer]. Review of Systems Const All systems reviewed & are unremarkable except as noted in HPI and below Eyes Reports no additional complaints, Denies change in vision and Denies other visual disturbances Card Denies chest pain at rest, Denies chest pain with activity, Denies edema, Denies irregular heart rhythm, Denies claudication, Denies dyspnea, Denies dyspnea on exertion, Denies orthopnea, Denies paroxysmal nocturnal dyspnea and Denies slow heart rate Resp Denies cough, Denies dyspnea and Denies dyspnea on exertion GI Denies abdominal pain, Denies change in bowel habits, Denies excessive flatus, Denies nausea and Denies vomiting Denies urinary incontinence, Denies urinary hesitancy and Denies urinary urgency Musc Denies abnormal gait, Denies atrophy, Denies deformity and Denies limited range of motion Skin/Breast Denies bleeding lesions, Denies changing lesions and Denies rash Neuro Denies abnormal gait and Denies lack of coordination Physical exam (Primary Care) Vital Signs: Last Vital Signs BP 118/70 02/05/23 09:41 BMI result Body Mass Index 39.7 Tobacco/Smoking Status: Tobacco use Status Tobacco use date assessed 02/05/23 02/05/23 09:45 Patient Tobacco Use Status Current everyday Tobacco 02/05/23 09:45 Tobacco use type Cigarette 02/05/23 09:40 e-Cigarette/Vaping Use Never Used 02/05/23 09:40 Thrive Assessment: Date of Thrive Assessment Date Thrive assessed 09/24/22 02/05/23 09:40 Eyes General: appearance normal, both eyes and all related structures Eyelids: Yes eyelids normal Conjunctivae: conjunctivae normal Neck Neck: Yes normal visual inspection and Yes supple Resp Effort & Inspection: normal respiratory effort Auscultation: clear to auscultation bilaterally Cardio Jugular venous distension: no JVD Rate: regular rate Rhythm: regular rhythm Heart sounds: S1 normal heart sound present and S2 normal heart sound present Extrem General: Yes full ROM Assessment and Plan Assessment & Plan (1) Type 2 diabetes mellitus with unspecified complications: Code(s): E11.8 - Type 2 diabetes mellitus with unspecified complications Plan: Continue metformin, Actos and Trulicity. A1c goal is equal or less than 7%. (2) Mixed hyperlipidemia: Code(s): E78.2 - Mixed hyperlipidemia Plan: Continue statins. LDL goal less than 70. (3) GERD (gastroesophageal reflux disease): Code(s): K21.9 - Gastro-esophageal reflux disease without esophagitis Qualifiers: Esophagitis presence: without esophagitis Qualified Code(s): K21.9 - Gastro-esophageal reflux disease without esophagitis Plan: Continue PPIs (4) Osteoarthritis of right knee: Code(s): M17.11 - Unilateral primary osteoarthritis, right knee Qualifiers: Osteoarthritis type: primary Qualified Code(s): M17.11 - Unilateral primary osteoarthritis, right knee Plan: Start diclofenac gel Orders: Orders XR knee RT 2V Today M25.561 - Pain in right knee Lipid Panel 4 Months E78.5 - Hyperlipidemia, unspecified Microalbumin, Random (w Creat) 4 Months E11.9 - Type 2 diabetes mellitus without complications Vitamin D 25-OH Total 4 Months E55.9 - Vitamin D deficiency, unspecified Vitamin B12 and Folate 4 Months E53.8 - Deficiency of other specified B group vitamins Comprehensive [place]. Panel Fast 4 Months E11.8 - Type 2 diabetes mellitus with unspecified complications Referrals Orthopedics Referral M25.561 - Pain in right knee Medications: New diclofenac sodium 1% (Arthritis Pain (diclofenac)) apply to single elbow, wrist or hand; for hand includes palm/fingers/back of hand 2 grams topical QID 30 days PRN 100 grams 1RF pain Coding Level of Care Code Est Pt Level 4 (23527) Diagnoses Type 2 diabetes mellitus with unspecified complications E11.8 Mixed hyperlipidemia E78.2 GERD (gastroesophageal reflux disease) K21.9 Esophagitis presence: without esophagitis Osteoarthritis of right knee M17.11 Osteoarthritis type: primary Time Spent (min) 23
[2023-02-05 09:41] VITALS: BP 118/70; BMI 39.7
== END 2023-02-05 10:07 | disposition home or self-care (01) ==
PROVIDERS: PCP Internal Medicine; Visit Provider Internal Medicine
DX: E11.8 Type 2 diabetes mellitus with unspecified complications (principal); E78.2 Mixed hyperlipidemia; K21.9 Gastro-esophageal reflux disease without esophagitis; M17.11 Unilateral primary osteoarthritis, right knee
CPT/HCPCS: 99214

== ENCOUNTER 2023-02-05 10:33 | Outpatient (REF) | payer OTHER, SELFPAY ==
--- NOTE | ~2023-02-05 | XR_ITS ---
EXAMINATION: XR KNEE, RIGHT CLINICAL INFORMATION: Pain in right knee COMPARISON: 11/21/2020 TECHNIQUE: AP and 2 lateral views of the right knee. FINDINGS: Right Knee: Progression of moderate medial joint space narrowing. Small tricompartmental osteophytes. Possible faint chondrocalcinosis in the lateral compartment. Redemonstration of narrowing of the patellofemoral compartment. No significant joint effusion. XR/XR knee RT 2V IMPRESSION: Moderate tricompartmental degenerative changes. Additional imaging with CT scan or MRI should be considered for better visualization as these modalities are much more sensitive for detection of fracture or other underlying pathology.
== END 2023-02-05 10:34 | disposition home or self-care (01) ==
LOC: HO.XRAY 10:33
PROVIDERS: PCP Internal Medicine; Visit Provider Internal Medicine
DX: M25.561 Pain in right knee (principal)
CPT/HCPCS: 73560

== ENCOUNTER 2023-03-07 14:04 | Outpatient (AMB) | payer OTHER, SELFPAY ==
[2023-03-07 14:05] VITALS: BP 124/76; PULSE 76; BMI 40.5
--- NOTE | 2023-03-07 14:05 | MHC.OFFVIS ---
Intake Vital Signs 03/07/23 14:05 Height 5 ft 2 in Weight 221 lb 5.506 oz BMI 40.5 BP 124/76 Blood Pressure Location Lt brachial Position Sitting Pulse 76 Pulse Source Pulse Oximeter Intake Visit Reasons: f/u mixed hyperlipidemia Intake Note: Patient present today for hyperlipidemia follow up visit. Civil Engineering Professional Required: Yes Civil Engineering Professional Language: Burkinan Accompanied by: Self / Same As Patient Allergies aspirin [Aspirin] Allergy (Mild, Verified 03/07/23 14:09) SWELLING Medication List - Last Reconciled 03/07/23 by Davidson Mckenzie MD atorvastatin 80 mg PO DAILY 90 days blood sugar diagnostic (FreeStyle Lite Strips) Use 1 test strip twice a day blood sugar diagnostic Use 1 test strip twice a day cholecalciferol (vitamin D3) 50 mcg PO DAILY diclofenac sodium 1% (Arthritis Pain (diclofenac)) 2 grams topical QID PRN 30 days dulaglutide (Trulicity) 3 mg (0.5 mL) subcut QWEEK ezetimibe (Zetia) 10 mg PO DAILY fenofibrate micronized 200 mg PO DAILY 90 days icosapent ethyl (Vascepa) 2 grams (2 x 1 gram) PO BID lancets Use 1 lancet twice a day as needed metformin ER 500 mg PO BID 90 days pantoprazole 40 mg PO DAILY 90 days pioglitazone 45 mg PO DAILY 90 days simethicone 180 mg PO BID 30 days sucralfate 1 g PO BID 90 days triamcinolone acetonide 0.1% 1 appl topical DAILY 15 days HPI HPI Comments History of Present Illness Details This is a 57-year-old female sent endocrinology for evaluation of hyperlipidemia And type 2 diabetes.. Pt has a hx of hyperlipidemia since 3 yrs .There is no history of AK or CVA.There is no hx of pancreatitis. No ETOH use. There is family history of hyperlipidemia in mother had AK . Patient currently takes atorvastatin 80 mg QD and fenofibrate 200 mg QDas . Vascepa 2 gms BID The patient does have a history of type 2 diabetes and is being treated with metformin and trulicity . Currently On metformin extended release 500 mg b.i.d., Actos 45 mg q.d. and Trulicity 1.5 mg q.week. For the hyperlipidemia, patient is on atorvastatin 80 mg q.d., fenofibrate 200 mg q.d., Vascepa 2 g b.i.d. walks 1/2 hr 3X/wk [facility] Medical History B12 deficiency Diabetes mellitus Hospital discharge follow-up Hypovitaminosis D Iron deficiency anemia Left knee pain Mixed hyperlipidemia Morbid obesity with BMI of 40.0-44.9, adult Precordial chest pain Right knee pain Type 2 diabetes mellitus with unspecified complications Surgical History History of laparoscopic cholecystectomy Family History Father Leukemia Mother Diabetes Hypertension CVD (cardiovascular disease) Sister Throat cancer Social History Housing: Apartment Alcohol intake: never Patient Tobacco Use Status: Current everyday Tobacco user Tobacco use type: Cigarette Cigarettes Per Day: 3 e-Cigarette/Vaping Use: Never Used Second Hand Smoke Exposure: No service: No Current occupational status: disabled Cognitive needs: No Hearing needs: No Vision needs: Yes Assessment & Plan Assessment & Plan (1) Mixed hyperlipidemia: Code(s): E78.2 - Mixed hyperlipidemia Plan: This is a 57-year-old female with a history of mixed hyperlipidemia current being treated with a fibrate, statin, Actos as well as Vascepa 2 gm BID with residual increase in triglycerides. Her HbA1c has improveds. Secondary causes such as hypothyroidism and proteinuria have been ruled out. Like goal triglycerides to be <150 bold maximize lower of LDL. The plan is to talk to the patient about ending Zetia 10 mg. Could also increase Trulicity to 3 mg Qkly if patient tolerates. Will recheck lipid profile in 8 weeks Also encouraged dietary and exercise modification Orders: Orders Lipid Panel 2 Months E78.5 - Hyperlipidemia, unspecified Hemoglobin A1c 2 Months E78.2 - Mixed hyperlipidemia Medications: New ezetimibe (Zetia) 10 mg PO DAILY 30 tabs 5RF dulaglutide (Trulicity) 3 mg (0.5 mL) subcut QWEEK 2 mL 5RF Discontinued dulaglutide (Trulicity) Discontinued Reason: Doctor's Order 1.5 mg (0.5 mL) subcut QWEEK 2 mL 4RF Quality Reporting (2019) Adult (CMS 138/2/22/69) Smoking risk assessment performed?: Yes Patient Tobacco Use Status: Current everyday Tobacco user Coding Level of Care Code Est Pt Level 3 (12421) Diagnoses Mixed hyperlipidemia E78.2
== END 2023-03-07 14:22 | disposition home or self-care (01) ==
PROVIDERS: PCP Internal Medicine; Visit Provider Internal Medicine Endocrinology, Diabetes & Metabolism
DX: E78.2 Mixed hyperlipidemia (principal)
CPT/HCPCS: 99213

== ENCOUNTER → 2023-03-07 14:04 | Outpatient (BNVA) | payer OTHER, SELFPAY | PROVIDERS: Visit Provider Internal Medicine Endocrinology, Diabetes & Metabolism | DX: E78.2 Mixed hyperlipidemia (principal); E11.9 Type 2 diabetes mellitus without complications; E53.8 Deficiency of other specified B group vitamins; F17.210 Nicotine dependence, cigarettes, uncomplicated; Z79.85 Long-term (current) use of injectable non-insulin antidiabetic drugs | CPT/HCPCS: 99212 ==

== ENCOUNTER 2023-03-25 10:29 | Outpatient (AMB) | payer OTHER, SELFPAY ==
[2023-03-25 10:31] VITALS: BP 104/72; PULSE 73; BMI 40.1
--- NOTE | 2023-03-25 10:31 | A.OFFVIS_ITS ---
Intake Vital Signs 03/25/23 10:31 Height 5 ft 2 in Weight 219 lb 2.232 oz BMI 40.1 BP 104/72 Blood Pressure Location Lt brachial Position Sitting Pulse 73 Intake Visit Reasons: 1 yr f/up echo Intake Note: 1 year follow up w/ EKG Environmental Health Technologist Required: Yes Environmental Health Technologist Language: Dye Tank Tender Name: [id number] Accompanied by: Self / Same As Patient Allergies aspirin [Aspirin] Allergy (Mild, Verified 03/25/23 10:41) SWELLING Medication List - Last Reconciled 03/25/23 by Shravan Dunn MD atorvastatin 80 mg PO DAILY 90 days blood sugar diagnostic (FreeStyle Lite Strips) Use 1 test strip twice a day blood sugar diagnostic Use 1 test strip twice a day cholecalciferol (vitamin D3) 50 mcg PO DAILY diclofenac sodium 1% (Arthritis Pain (diclofenac)) 2 grams topical QID PRN 30 days dulaglutide (Trulicity) 3 mg (0.5 mL) subcut QWEEK ezetimibe (Zetia) 10 mg PO DAILY fenofibrate micronized 200 mg PO DAILY 90 days icosapent ethyl (Vascepa) 2 grams (2 x 1 gram) PO BID lancets Use 1 lancet twice a day as needed metformin ER 500 mg PO BID 90 days pantoprazole 40 mg PO DAILY 90 days pioglitazone 45 mg PO DAILY 90 days simethicone 180 mg PO BID 30 days sucralfate 1 g PO BID 90 days triamcinolone acetonide 0.1% 1 appl topical DAILY 15 days HPI HPI Comments History of Present Illness Details Padma returns for follow-up. Has multiple cardiovascular risk factors including obesity, deconditioning, dyslipidemia and diabetes. In the past, she was seen regarding chest pain symptoms. Perfusion imaging was however unremarkable. She states that she still gets off and on chest pain. She was in 3rd floor and sometimes when she goes up flights of stairs she can get chest pain. Hence not clear if it is angina. Discussed with patient using kiln furniture caster. [facility] Medical History B12 deficiency Diabetes mellitus Hospital discharge follow-up Hypovitaminosis D Iron deficiency anemia Left knee pain Mixed hyperlipidemia Morbid obesity with BMI of 40.0-44.9, adult Precordial chest pain Right knee pain Type 2 diabetes mellitus with unspecified complications Surgical History History of laparoscopic cholecystectomy Family History Father Leukemia Mother Diabetes Hypertension CVD (cardiovascular disease) Sister Throat cancer Social History Housing: Apartment Alcohol intake: never Patient Tobacco Use Status: Current everyday Tobacco user Tobacco use type: Cigarette Cigarettes Per Day: 3 e-Cigarette/Vaping Use: Never Used Second Hand Smoke Exposure: No service: No Current occupational status: disabled Cognitive needs: No Hearing needs: No Vision needs: Yes Review of Systems Const Denies weakness ENT Denies dizziness Card Denies chest pain, Denies chest pain with activity, Denies syncope, Denies rapid heart rate, Denies pedal edema, Denies edema, Denies leg edema, Denies lightheadedness, Denies palpitations, Denies dyspnea, Denies dyspnea on exertion and Denies orthopnea Resp Denies cough, Denies dyspnea and Denies dyspnea on exertion GI Denies hematochezia and Denies change in stool character Musc Denies abnormal gait, Denies muscle cramps, Denies muscle weakness, Denies numbness, Denies radiating pain into limb and Denies tingling Neuro Denies abnormal gait, Denies dizziness, Denies syncope, Denies numbness, Denies tingling and Denies weakness Endo Denies palpitations Physical Exam Vital Signs: Last Vital Signs Pulse 73 03/25/23 10:31 BP 104/72 03/25/23 10:31 BMI result Body Mass Index 40.1 Const General: comfortable and no acute distress Orientation/consciousness: patient oriented x3 HEENT Other: Unremarkable Head: Yes normal to inspection Neck Neck: Yes normal visual inspection Chest Chest palpation & inspection: normal inspection of the chest Resp Auscultation: clear to auscultation bilaterally Cardio Palpation: normal PMI Heart sounds: S1 normal heart sound present, S2 normal heart sound present, no gallops, no murmurs and no rubs GI Palpation (GI): Soft to palpation Back/Spine/Pelvis Other: unremarkable Skin General skin exam: no rashes or lesions noted Neuro General: patient oriented x3 Extrem General: Yes normal to inspection Psych Mental Status: mental status grossly normal Office Procedures EKG Details: EKG with sinus rhythm at 73/Min; possible appears enlargement; no significant ST-T changes; [place]. [id number], Complete Assessment & Plan Assessment & Plan (1) Precordial chest pain: Code(s): R07.2 - Precordial pain Plan: In the past, echocardiogram and stress test were unremarkable. As she continues to describe symptoms, we will proceed with coronary CTA. (2) Type 2 diabetes mellitus with unspecified complications: Code(s): E11.8 - Type 2 diabetes mellitus with unspecified complications Plan: Last hemoglobin A1c is 6.3%, reasonable. Listed to be on Trulicity, metformin, pioglitazone. (3) Obese: Code(s): E66.9 - Obesity, unspecified Qualifiers: Body mass index: BMI 40.0-44.9 Obesity classification: adult class 3 (BMI >= 40) Obesity type: due to excess calories Serious obesity comorbidity presence: with serious comorbidity Qualified Code(s): E66.01 - Morbid (severe) obesity due to excess calories; Z68.41 - Body mass index [BMI] 40.0-44.9, adult Plan: Continues to be overweight. Not much of a change in the last few years. (4) Mixed hyperlipidemia: Code(s): E78.2 - Mixed hyperlipidemia Plan: Already addressed through Endocrine. On statins, Zetia, vascepa. Has also been on Repatha in the past but not in her list any more. (5) Ascending aorta enlargement: Code(s): I77.89 - Other specified disorders of arteries and arterioles Plan: Ascending aortic size was 4 cm in the last echocardiogram. Can recheck. Orders: Orders CA echo transthoracic complete Today R07.2 - Precordial pain CT Cardiac Coronary Angio Today R07.2 - Precordial pain Quality Reporting (2019) Adult ([facility] 13809/11/68) Smoking risk assessment performed?: Yes Patient Tobacco Use Status: Current everyday Tobacco user Coding Level of Care Code Est Pt Level 4 (15656) Diagnoses Precordial chest pain R07.2 Type 2 diabetes mellitus with unspecified complications E11.8 Obese E66.01; Z68.41 Body mass index: BMI 40.0-44.9 Obesity classification: adult class 3 (BMI >= 40) Obesity type: due to excess calories Serious obesity comorbidity presence: with serious comorbidity Mixed hyperlipidemia E78.2 Ascending aorta enlargement I77.89 CPT Codes EKG - CPT: 91073-[id number], Complete ([id number])
== END 2023-03-25 10:59 | disposition home or self-care (01) ==
PROVIDERS: PCP Internal Medicine; Referring Provider Internal Medicine; Visit Provider Internal Medicine
DX: R07.2 Precordial pain (principal); E11.8 Type 2 diabetes mellitus with unspecified complications; E66.01 Morbid (severe) obesity due to excess calories; Z68.41 Body mass index [BMI] 40.0-44.9, adult; E78.2 Mixed hyperlipidemia; I77.89 Other specified disorders of arteries and arterioles
CPT/HCPCS: 93010; 99214

== ENCOUNTER → 2023-03-25 10:29 | Outpatient (BNVA) | payer OTHER, SELFPAY | PROVIDERS: PCP Internal Medicine; Referring Provider Internal Medicine; Visit Provider Internal Medicine | DX: R07.2 Precordial pain (principal); E11.8 Type 2 diabetes mellitus with unspecified complications; E66.01 Morbid (severe) obesity due to excess calories; Z68.41 Body mass index [BMI] 40.0-44.9, adult; E78.2 Mixed hyperlipidemia; I77.89 Other specified disorders of arteries and arterioles; Z79.899 Other long term (current) drug therapy | CPT/HCPCS: 93005; 99212 ==

== ENCOUNTER 2023-04-01 08:28 | Outpatient (REF) | payer OTHER, SELFPAY ==
--- NOTE | ~2023-04-01 | XR_ITS ---
EXAMINATION: XR KNEE, RIGHT CLINICAL INFORMATION: Pain in unspecified knee, M25.569 COMPARISON: 02/05/2023 TECHNIQUE: [place] view of the right knee. FINDINGS: Mild patellofemoral compartment osteoarthritis is characterized by marginal osteophytes and articular cortical irregularity. Patella is appropriately situated at the trochlea. Mild subcutaneous edema. No fractures are identified. XR/XR knee RT 1V IMPRESSION: Mild patellofemoral compartment osteoarthritis on this single sunrise view of the right knee.
== END 2023-04-01 08:29 | disposition home or self-care (01) ==
LOC: HO.HOSX 08:28
PROVIDERS: Visit Provider Physician Assistant
DX: M17.11 Unilateral primary osteoarthritis, right knee (principal); E11.9 Type 2 diabetes mellitus without complications
CPT/HCPCS: 20610; 73560; J1020

== ENCOUNTER 2023-04-01 09:09 | Outpatient (AMB) | payer OTHER, SELFPAY ==
--- NOTE | 2023-04-01 09:15 | MHC.OFFVIS ---
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 Patient reports off and on pain for 3 months. She states that the lidocaine patches are giving her relief. She reports that her pain is on the lateral aspect of the right knee. 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 The patient reports intermittent pain for 3 months, since 12/2022. She confirms the use of lidocaine patches with relief. She claims the pain is on the lateral aspect of the right knee. [facility] Medical History B12 deficiency Diabetes mellitus Hospital discharge follow-up Hypovitaminosis D Iron deficiency anemia Left knee pain Mixed hyperlipidemia Morbid obesity with BMI of 40.0-44.9, adult Precordial chest pain Right knee pain Type 2 diabetes mellitus with unspecified complications Surgical History History of laparoscopic cholecystectomy Family History Father Leukemia Mother Diabetes Hypertension CVD (cardiovascular disease) Sister Throat cancer Social History Housing: Apartment Alcohol intake: never Patient Tobacco Use Status: Current everyday Tobacco user Tobacco use type: Cigarette Cigarettes Per Day: 3 e-Cigarette/Vaping Use: Never Used Second Hand Smoke Exposure: No service: No Current occupational status: disabled Cognitive needs: No Hearing needs: No Vision needs: Yes Review of Systems Const All systems reviewed & are unremarkable except as noted in HPI and below Physical Exam Vital Signs: BMI result Body Mass Index 40.1 Const General: cooperative and no acute distress Orientation/consciousness: patient oriented x3 Resp Effort & Inspection: normal respiratory effort and able to speak in complete sentences Cardio Peripheral pulses: Peripheral pulses 2+ throughout Skin General skin exam: no rashes or lesions noted Neuro General: patient oriented x3 Extrem Other: Right knee: Normal to inspection. No ecchymosis, erythema, or joint effusion. No tenderness to palpation to the medial joint line. Tenderness to palpation to the lateral joint line. Full knee extension and flexion. Crepitus felt with ROM. NVI. Office Procedures Joint Injection/Drain Joint Injection/Drain Primary Site: right knee Prep: site was prepped using aseptic technique, ethochloride spray was applied and injection warnings given Injected: 40 mg of, with 8 mL of (2% plain lido ) and in the joint Approach Used: anterolateral Procedure: The patient tolerated the procedure well, but had some pain with the injection and there was some relief with the local anesthesia Coding 79415 - Large joint Procedure code (CPT) selection complete Results Reviewed Results Reviewed: 04/01/23 09:28 Lidocaine HCl 2 % MPF [Xylocaine 2 % MPF] 5 ml .ROUTE .STK-MED ONE methylPREDNISolone acetate [DEPO-MedroL] 40 mg .ROUTE .STK-MED ONE Assessment & Plan Assessment & Plan (1) Osteoarthritis of right knee: Code(s): M17.11 - Unilateral primary osteoarthritis, right knee Qualifiers: Osteoarthritis type: primary Qualified Code(s): M17.11 - Unilateral primary osteoarthritis, right knee (2) Diabetes mellitus: Code(s): E11.9 - Type 2 diabetes mellitus without complications Qualifiers: Diabetes mellitus complication status: without complication Diabetes mellitus long term care pharmacist insulin use: without long term care pharmacist use Diabetes mellitus type: type 2 Qualified Code(s): E11.9 - Type 2 diabetes mellitus without complications Plan Ms. Juanita Kwong is a 57-year-old female, who is Azerbaijani speaking, presents in the office today, as a new patient, for an evaluation of right knee pain. The patient reports intermittent pain for 3 months, since 12/2022. She confirms the use of lidocaine patches with relief. She claims the pain is on the lateral aspect of the right knee. The patient was offered a cortisone injection in the right knee with 40 mg of DepoMedrol. The patient was explained the risk, benefits, and alternatives to receiving this injection. After receiving consent for the injection, the patient had the procedure done while in office today. The patient tolerated the procedure well with no complications. Due to the patient?s history of diabetes, they were instructed to monitor her blood glucose level. The patient was informed that they could see a rise in their numbers and if the numbers became too high, they were instructed to call their PCP. The patient was also informed that they could have facial flushing as a side effect of the injection but this will pass. Follow up will be PRN, or sooner if needed. X-rays of the right knee which were obtained while in the office today and were reviewed by me, Sandra Larson PA-C, revealed osteoarthritis. Orders: Orders XR knee RT 1V Today M25.569 - Pain in unspecified knee Patient Instructions: Scribed for Sandra Larson PA-C by Ashlee Victor clinical medical transcriptionist, on 04/01/2023 at 9:05 am, EST. Quality Reporting (2019) Adult ([facility] 13809/11/68) Smoking risk assessment performed?: Yes Patient Tobacco Use Status: Current everyday Tobacco user Coding Level of Care Code New Pt Level 4 (69452) Diagnoses Primary osteoarthritis of right knee M17.11 Osteoarthritis type: primary Type 2 diabetes mellitus without complication, without long-term current use of insulin E11.9 Diabetes mellitus complication status: without complication Diabetes mellitus long term care pharmacist insulin use: without long term care pharmacist use Diabetes mellitus type: type 2 CPT Codes Coding - 22419 Large joint: 66547 - Large joint ([id number])
[2023-04-01 09:20] VITALS: BMI 40.1
== END 2023-04-01 09:42 | disposition home or self-care (01) ==
PROVIDERS: PCP Internal Medicine; Visit Provider Physician Assistant
DX: M17.11 Unilateral primary osteoarthritis, right knee (principal)
CPT/HCPCS: 20610; 99214

== ENCOUNTER → 2023-05-19 14:22 | Outpatient (REF) | payer OTHER, SELFPAY ==
--- NOTE | 2023-05-19 14:24 | CA_ITS ---
Transthoracic Echocardiogram Patient (Last, First, Middle): Padma Castro, Gender: Female Date of : 1965 Age: 57 Procedure Date: 05/19/2023 Procedure Type: Transthoracic Echocardiogram Location: OP Height: 157.48 cm Weight: 97.98 kg BSA: 1.98 m2 Heart Rate: 76 bpm BP: 118 / 70 mmHg Public Health Advisor: SB Referring MD: Shravan Dunn MD Symptoms: R07.2 - Precordial pain Study Quality: Adequate w contrast ECG Rhythm: Sinus Conclusions: - The left ventricular systolic function is hyperdynamic. The visually estimated ejection fraction is >70%. - No obvious valvular pathology seen on this study. - There is mild dilatation of the ascending aorta measuring 4.00 cm. Findings Procedure Information Contrast agent, definity, is being given per protocol without apparent complications. Left Ventricle Normal left ventricular cavity size. There is normal left ventricular wall thickness. The left ventricular systolic function is hyperdynamic. The visually estimated ejection fraction is >70%. There is no evidence of regional wall motion abnormalities. Evidence suggests grade I (mild) diastolic dysfunction. Right Ventricle Normal right ventricular cavity size and systolic function. Atria Both atria are normal in size. Aortic Valve There is a normal trileaflet aortic valve. There is no aortic valve stenosis. There is no aortic valve regurgitation. Mitral Valve The mitral valve appears normal. There is no mitral valve regurgitation. There is no mitral valve stenosis. Pulmonic Valve The pulmonic valve is likely normal. Tricuspid Valve There is trace tricuspid valve regurgitation. There is no evidence of pulmonary hypertension. Great Vessels There is mild dilatation of the ascending aorta measuring 4.00 cm. Venous The inferior vena cava is normal in size and collapses less than 50% with inspiration. Pericardium/Pleural There is no evidence of pericardial effusion. Prior Study Comparison No significant change compared to prior study dated: 02/01/2022. Recommendations, Care & Conclusions No obvious valvular pathology seen on this study. Measurements 2D Linear Measurements IVSd: 0.95 0.6-0.9/0.6-1.0 cm LVIDd: 4.87 3.9-5.3/4.2-5.9 cm LVIDd Index: 2.46 2.4-3.2/2.2-3.1 cm/m2 LVIDs: 2.96 2.0-3.6 cm LVPWd: 0.77 0.7-1.1 cm LA Diam: 4.10 2.7-3.8/3.0-4.0 cm LAIDs Index: 2.07 1.5-2.3 cm/m2 LV Mass: 177.52 67-162/88-224 g LV Mass Index: 89.66 43-95/49-115 g/m2 LVOT Diam: 2.00 3.0+(-)1.3 cm 2D Systolic Function EF 4C: 76.30 >55% EF 2C: 74.80 >55% EF BiP: 75.70 >55% Mitral Valve MV Pk E: 0.83 MV PK A: 0.90 MV Decel Time: 225.00 E/A: 0.90 E'Lateral: 6.74 E'Medial: 5.87 E/E' Med: 14.20 E/E' Lat: 12.30 PHT: 66.00 MVA PHT: 3.33 Decel [place]: 3.69 Aortic Valve AoV Pk Vishal: 1.96 AoV Mn Vishal: 1.24 AoV VTI: 0.37 AoV Pk Grad: 15.00 Aov Mn Grad: 8.00 ILANA Cont.VTI: 2.72 LVOT LVOT Pk Vishal: 1.68 LVOT Mn Vishal: 1.12 LVOT VTI: 0.32 LVOT Pk Grad: 11.00 LVOT Mn Grad: 6.00 LVOT Diam: 2.00 LVOT Area: 3.14 Diastolic Function MV Pk E: 0.83 MV Pk A: 0.90 E/A: 0.90 E'Medial: 5.87 E/E' Med: 14.20 E' Laterial: 6.74 E/E' Lat: 12.30 Right Ventricle TAPSE (mm): 21.90 TVS' Vishal: 16.20 Tricuspid Valve TR Pk Vishal: 2.07 TR Pk Grad: 17.00 RA Press: 8.00 RVSP: 25.00 Great Vessels Aorta Sinus of Valsalva: 3.30 2.0-3.5 cm Ao Asc: 4.00 2.1-3.4 cm Pulmonary Veins Pulm Vein S/D 1.80 Pulmonary Valve PV Pk Vishal: 1.34 Peak PV Grad: 7.00 Updated in Other Vendor System with Status of Final Shravan Dunn MD electronically signed on 05/20/2023 10:05:17 AM with status of Final
== END ==
LOC: HO.CARD 14:22
PROVIDERS: PCP Internal Medicine; Visit Provider Internal Medicine
DX: R07.2 Precordial pain (principal)
CPT/HCPCS: 93306; Q9957

== ENCOUNTER → 2023-05-19 14:24 | Outpatient (BNV) | payer OTHER, SELFPAY | PROVIDERS: PCP Internal Medicine; Visit Provider Internal Medicine | DX: I36.1 Nonrheumatic tricuspid (valve) insufficiency (principal); R07.2 Precordial pain | CPT/HCPCS: 93306 ==

== ENCOUNTER 2023-06-09 09:17 | Outpatient (REF) | payer OTHER, SELFPAY ==
[2023-06-09 10:04] LABS: Estimated Average Glucose 123 mg/dL; Hemoglobin A1c % 5.9 % (<6.0)
[2023-06-09 10:22] LABS: Anion Gap 13 (12-20); Blood Urea Nitrogen 12 mg/dL (9-16); Calcium 10.4 mg/dL (8.4-10.2); Carbon Dioxide 26 mmol/L (22-29); Chloride 106 mmol/L (96-108); Cholesterol 185 mg/dL (<200); Estimated Glomerular Filt Rate > 60; Glucose Random 109 mg/dL (60-115); HDL Cholesterol 35 mg/dL (>40); LDL Cholesterol Calculated 84 mg/dL (<100); Potassium 4.3 mmol/L (3.3-5.1); Sodium 141 mmol/L (135-145); Triglycerides 331 mg/dL (<150)
[2023-06-09 10:30] LABS: Alanine Aminotransferase 36 U/L (0-31); Albumin Level 4.4 g/dL (3.5-5.0); Alkaline Phosphatase 112 U/L (39-117); Anion Gap 12 (12-20); Aspartate Amino Transferase 31 U/L (5-31); Bilirubin Total 0.4 mg/dL (0.0-1.0); Blood Urea Nitrogen 12 mg/dL (9-16); Calcium 10.2 mg/dL (8.4-10.2); Carbon Dioxide 25 mmol/L (22-29); Chloride 107 mmol/L (96-108); Estimated Glomerular Filt Rate > 60; Glucose Fasting 111 mg/dL (60-99); Potassium 4.3 mmol/L (3.3-5.1); Sodium 140 mmol/L (135-145); Total Protein 7.6 g/dL (6.5-8.0)
[2023-06-09 10:47] LABS: Vitamin D 25-OH Total 22.9 ng/mL (>30)
[2023-06-09 10:59] LABS: Folate 14.4 ng/mL (> or = 4.0); Vitamin B12 559 pg/mL (200-900)
[2023-06-09 11:41] LABS: Creatinine Urine 95.59 mg/dL; Microalbum/Creatinine Ratio Ur 12.5 ug/mg cr (<30)
== END 2023-06-09 09:18 | disposition home or self-care (01) ==
LOC: HO.LAB 09:17
PROVIDERS: Absent Provider Internal Medicine Endocrinology, Diabetes & Metabolism; PCP Internal Medicine; Visit Provider Internal Medicine
DX: E11.9 Type 2 diabetes mellitus without complications (principal); E55.9 Vitamin D deficiency, unspecified; E53.8 Deficiency of other specified B group vitamins; E78.2 Mixed hyperlipidemia; R07.2 Precordial pain
CPT/HCPCS: 36415; 80048; 80053; 80061; 82043; 82306; 82570; 82607; 82746; 83036

== ENCOUNTER 2023-06-17 10:36 | Outpatient (AMB) | payer OTHER, SELFPAY ==
--- NOTE | 2023-06-17 10:38 | A.OFFPC_ITS ---
Vital Signs 06/17/23 10:39 Height 5 ft 2 in Weight 220 lb BMI 40.2 BP 170/88 H Blood Pressure Location Lt brachial Position Sitting Pulse 80 Pulse Source Pulse Oximeter Pulse Oximetry (%) 97 Oxygen Delivery Method Room Air Intake Visit Reasons: dm Intake Note: Patient here for a follow up DM Watch Commander Required: No Accompanied by: Self / Same As Patient Allergies aspirin [Aspirin] Allergy (Mild, Verified 06/17/23 10:51) SWELLING Medication List - Last Reconciled 06/17/23 by Nolvia Bah MD atorvastatin 80 mg PO DAILY 90 days blood sugar diagnostic (FreeStyle Lite Strips) Use 1 test strip twice a day blood sugar diagnostic Use 1 test strip twice a day cholecalciferol (vitamin D3) 50 mcg PO DAILY diclofenac sodium 1% (Arthritis Pain (diclofenac)) 2 grams topical QID PRN 30 days dulaglutide (Trulicity) 3 mg (0.5 mL) subcut QWEEK ezetimibe (Zetia) 10 mg PO DAILY fenofibrate micronized 200 mg PO DAILY 90 days icosapent ethyl (Vascepa) 2 grams (2 x 1 gram) PO BID lancets Use 1 lancet twice a day as needed metformin ER 500 mg PO BID 90 days pantoprazole 40 mg PO DAILY 90 days pioglitazone 45 mg PO DAILY 90 days simethicone 180 mg PO BID 30 days sucralfate 1 g PO BID 90 days triamcinolone acetonide 0.1% 1 appl topical DAILY 15 days Tobacco use date assessed: 02/05/23 Dental Screening Dental Screen Date: 06/17/23 Did you have a dental visit in the last 12 months?: Yes Did you have a dental problem in the last 6 months where you did not have access to dental care?: No Was dental information given to patient?: Patient has dentist HPI HPI Comments History of Present Illness Details This is a 57-year-old female with diabetes mellitus type 2, hypertension, mixed hyperlipidemia and morbid obesity that comes today for follow-up on her conditions. A1c within goal. LDL elevated due to triglycerides and she is compliant with her medications. Dietary changes were advised. Blood pressure elevated and I will start her on lisinopril. Blood pr essure will be recheck in 3 weeks by nurse navigator. Blood pressure goal is equal or less than 130/80. She is morbidly obese with a BMI of 40.2 and was advised to diet and exercise to reach BMI goal less than 30. [facility] Medical History (Updated 06/17/23 @ 11:48 by Nolvia Bah MD) Hospital discharge follow-up Morbid obesity with BMI of 40.0-44.9, adult Precordial chest pain Iron deficiency anemia Right knee pain Left knee pain Type 2 diabetes mellitus with unspecified complications B12 deficiency Hypovitaminosis D Mixed hyperlipidemia Diabetes mellitus Surgical History History of laparoscopic cholecystectomy Family History Father Leukemia Mother Diabetes Hypertension CVD (cardiovascular disease) Sister Throat cancer Housing: Apartment Alcohol intake: never Patient Tobacco Use Status: Current everyday Tobacco user Tobacco use type: Cigarette Cigarettes Per Day: 3 e-Cigarette/Vaping Use: Never Used Second Hand Smoke Exposure: No service: No Current occupational status: disabled Cognitive needs: No Hearing needs: No Vision needs: Yes Questionnaire Thrive Questionnaire Date Thrive assessed: 09/24/22 CHRISTIANO-7 AMB Questionnaire CHRISTIANO-7 Date CHRISTIANO - 7 assessed: 09/24/22 Source: Developed by Drs. Davidson Villarreal, Noreen Diego, Ezekiel Herrera and colleagues, with an educational jaxon from [employer]. Review of Systems Const All systems reviewed & are unremarkable except as noted in HPI and below Eyes Reports no additional complaints, Denies change in vision and Denies other visual disturbances Card Denies chest pain at rest, Denies chest pain with activity, Denies edema, Denies irregular heart rhythm, Denies claudication, Denies dyspnea, Denies dyspnea on exertion, Denies orthopnea, Denies paroxysmal nocturnal dyspnea and Denies slow heart rate Resp Denies cough, Denies dyspnea and Denies dyspnea on exertion GI Denies abdominal pain, Denies change in bowel habits, Denies excessive flatus, Denies nausea and Denies vomiting Denies urinary incontinence, Denies urinary hesitancy and Denies urinary urgency Musc Denies abnormal gait, Denies atrophy, Denies deformity and Denies limited range of motion Skin/Breast Denies bleeding lesions, Denies changing lesions and Denies rash Neuro Denies abnormal gait and Denies lack of coordination Physical exam (Primary Care) Vital Signs: Last Vital Signs Pulse 80 06/17/23 10:39 BP 170/88 H 06/17/23 10:39 Pulse Ox 97 06/17/23 10:39 Oxygen Delivery Method Room Air 06/17/23 10:39 BMI result Body Mass Index 40.2 Tobacco/Smoking Status: Tobacco use Status Tobacco use date assessed 02/05/23 06/17/23 10:42 Patient Tobacco Use Status Current everyday Tobacco 06/17/23 10:42 Tobacco use type Cigarette 06/17/23 10:42 e-Cigarette/Vaping Use Never Used 06/17/23 10:42 Thrive Assessment: Date of Thrive Assessment Date Thrive assessed 09/24/22 06/17/23 10:42 Eyes General: appearance normal, both eyes and all related structures Eyelids: Yes eyelids normal Conjunctivae: conjunctivae normal Neck Neck: Yes normal visual inspection and Yes supple Resp Effort & Inspection: normal respiratory effort Auscultation: clear to auscultation bilaterally Cardio Jugular venous distension: no JVD Rate: regular rate Rhythm: regular rhythm Heart sounds: S1 normal heart sound present and S2 normal heart sound present Extrem General: Yes full ROM Office Procedures Flu Questionnaire Does the patient have a severe egg allergy?: No Does the patient have severe life threatening allergies?: No Does the patient have a fever or illness today?: No Has the patient ever had Guillain-[place] Syndrome?: No Has the patient ever had any past reaction to a flu shot?: No Immunizations flu vacc [id number] 6mos up(PF) 60 mcg(15 mcgx4)/0.5 mL IM syringe Performing Provider: Nolvia Bah MD [place] [facility] Administered by: JOSE Serrano on 06/17/23 11:03 Dose Route Admin Location Dispensed Lot Number Expiration Date NDC [employer] 0.5 mL IM Right Deltoid 0.5 mL [id number] 01/18/24 [id number] Accredible VIS Given Date VIS Provided VIS Publication Date 06/17/23 Single Vaccine 21 Eligibility Eligibility Date Funding Source Not [facility] Eligible 06/17/23 Private Assessment and Plan Assessment & Plan (1) Diabetes mellitus: Code(s): E11.9 - Type 2 diabetes mellitus without complications Qualifiers: Diabetes mellitus type: type 2 Diabetes mellitus termite treater insulin use: without termite treater use Diabetes mellitus complication status: without complication Qualified Code(s): E11.9 - Type 2 diabetes mellitus without complications Plan: Continue Trulicity. A1c goal is equal or less than 7%. Continue metformin. (2) Mixed hyperlipidemia: Code(s): E78.2 - Mixed hyperlipidemia Plan: Continue statins, fibrates, Zetia and Vascepa. LDL goal is less than 70. (3) Morbid obesity with BMI of 40.0-44.9, adult: Code(s): E66.01 - Morbid (severe) obesity due to excess calories; Z68.41 - Body mass index [BMI] 40.0-44.9, adult Plan: Start diet and exercise. BMI goal is less than 30. (4) Essential hypertension: Code(s): I10 - Essential (primary) hypertension Plan: Start lisinopril. Blood pressure goal is equal or less than 130/80. Orders: Orders Influenza [id number] Immunization Today Z23 - Encounter for immunization Complete Blood Count Auto Diff 4 Months D64.9 - Anemia, unspecified Comprehensive [place]. Panel Fast 4 Months E11.8 - Type 2 diabetes mellitus with unspecified complications Lipid Panel 4 Months E78.5 - Hyperlipidemia, unspecified Microalbumin, Random (w Creat) 4 Months E11.9 - Type 2 diabetes mellitus without complications Vitamin D 25-OH Total 4 Months E55.9 - Vitamin D deficiency, unspecified IRON PROFILE 4 Months D64.9 - Anemia, unspecified Medications: New cholecalciferol (vitamin D3) 25 mcg PO DAILY 90 days 90 caps 2RF E55.9 - Vitamin D deficiency, unspecified lisinopril 10 mg PO DAILY 90 days 90 tabs 1RF Coding Level of Care Code Est Pt Level 4 (34196) Diagnoses Type 2 diabetes mellitus without complication, without long-term current use of insulin E11.9 Diabetes mellitus type: type 2 Diabetes mellitus termite treater insulin use: without termite treater use Diabetes mellitus complication status: without complication Mixed hyperlipidemia E78.2 Morbid obesity with BMI of 40.0-44.9, adult E66.01; Z68.41 Essential hypertension I10 Time Spent (min) 23
[2023-06-17 10:39] VITALS: BP 170/88; PULSE 80; O2SAT 97; BMI 40.2
== END 2023-06-17 11:04 | disposition home or self-care (01) ==
PROVIDERS: PCP Internal Medicine; Visit Provider Internal Medicine
DX: E11.9 Type 2 diabetes mellitus without complications (principal); E66.01 Morbid (severe) obesity due to excess calories; Z68.41 Body mass index [BMI] 40.0-44.9, adult; Z23 Encounter for immunization; E78.2 Mixed hyperlipidemia; I10 Essential (primary) hypertension; E55.9 Vitamin D deficiency, unspecified
CPT/HCPCS: 90471; 90686; 99214

== ENCOUNTER 2023-10-28 08:37 | Outpatient (REF) | payer OTHER, SELFPAY ==
[2023-10-28 08:56] LABS: MANUAL DIFF FLAG NO
[2023-10-28 09:55] LABS: Basophils Percent Auto 0.5 % (0-2); Eosinophils Absolute Auto 0.5 X10*3/uL (0.0-0.4); Eosinophils Percent Auto 7.2 % (0-4); Hemoglobin 13.8 g/dl (12.0-16.0); Imm Gran Abs Auto 0.02 X10*3/uL (0.00-0.03); Imm Gran Pct Auto 0.3 % (0.0-0.4); Lymphocytes Absolute Auto 3.5 X10*3/uL (1.2-4.9); Lymphocytes Percent Auto 47.5 % (20-40); Mean Corpuscular HGB Conc 32.1 g/dl (31.0-35.0); Mean Corpuscular Volume 93.5 fL (80.0-98.0); Mean Platelet Volume 11.7 fL (9.4-12.3); Monocytes Absolute Auto 0.5 X10*3/uL (0.1-1.2); Neutrophils Absolute Auto 2.8 x10*3/uL (2.0-8.3); Neutrophils Percent Auto 37.5 % (45-73); Platelet Count 273 X10*3/uL (160-400); Red Cell Distribution Width 12.9 % (11.0-16.0); White Blood Count 7.5 X10*3/uL (4.8-10.8)
[2023-10-28 10:24] LABS: Creatinine Urine 127.23 mg/dL; Microalbum/Creatinine Ratio Ur 41.6 ug/mg cr (<30)
[2023-10-28 11:19] LABS: Alanine Aminotransferase 38 U/L (0-31); Albumin Level 4.4 g/dL (3.5-5.0); Alkaline Phosphatase 134 U/L (39-117); Anion Gap 13 (12-20); Aspartate Amino Transferase 21 U/L (5-31); Bilirubin Total 0.3 mg/dL (0.0-1.0); Blood Urea Nitrogen 15 mg/dL (9-16); Calcium 10.1 mg/dL (8.4-10.2); Carbon Dioxide 26 mmol/L (22-29); Chloride 107 mmol/L (96-108); Cholesterol 254 mg/dL (<200); Estimated Glomerular Filt Rate > 60; Glucose Fasting 131 mg/dL (60-99); HDL Cholesterol 36 mg/dL (>40); Iron 69 mcg/dL (30-160); Percent Iron Saturation 20 % (15-50); Potassium 4.6 mmol/L (3.3-5.1); Sodium 141 mmol/L (135-145); Total Iron Binding Capacity 352 mcg/dL (228-428); Total Protein 7.6 g/dL (6.5-8.0); Triglycerides 476 mg/dL (<150); Unsaturated Iron Binding 283 ug/dL
[2023-10-28 11:38] LABS: Vitamin D 25-OH Total 20.5 ng/mL (>30)
== END 2023-10-28 08:38 | disposition home or self-care (01) ==
LOC: HO.LAB 08:37
PROVIDERS: Absent Provider Internal Medicine Endocrinology, Diabetes & Metabolism; PCP Internal Medicine; Visit Provider Internal Medicine
DX: E55.9 Vitamin D deficiency, unspecified (principal); E11.8 Type 2 diabetes mellitus with unspecified complications; E78.5 Hyperlipidemia, unspecified; D64.9 Anemia, unspecified; E11.9 Type 2 diabetes mellitus without complications
CPT/HCPCS: 36415; 80053; 80061; 82043; 82306; 82570; 83540; 85025

== ENCOUNTER 2023-11-26 13:52 | Outpatient (AMB) | payer OTHER, SELFPAY ==
[2023-11-26 13:58] VITALS: BP 140/70; BMI 40.6
--- NOTE | 2023-11-26 13:58 | MHC.PC.OV ---
Vital Signs 11/26/23 13:58 Height 5 ft 2 in Weight 222 lb BMI 40.6 BP 140/70 H Blood Pressure Location Lt brachial Position Sitting Intake Visit Reasons: PE Intake Note: Patient here for a physical exam Clarity Developer Required: No Accompanied by: Self / Same As Patient Allergies aspirin [Aspirin] Allergy (Mild, Verified 11/26/23 14:17) SWELLING Medication List - Last Reconciled 11/26/23 by Nolvia Bah MD atorvastatin 80 mg PO DAILY 90 days blood sugar diagnostic (FreeStyle Lite Strips) Use 1 test strip twice a day blood sugar diagnostic Use 1 test strip twice a day cholecalciferol (vitamin D3) 25 mcg PO DAILY 90 days diclofenac sodium 1% (Arthritis Pain (diclofenac)) 2 grams topical QID PRN 30 days dulaglutide (Trulicity) 3 mg (0.5 mL) subcut QWEEK ezetimibe 10 mg PO DAILY fenofibrate micronized 200 mg PO DAILY 90 days icosapent ethyl (Vascepa) 2 grams (2 x 1 gram) PO BID lancets Use 1 lancet twice a day as needed lisinopril 10 mg PO DAILY 90 days metformin ER 500 mg PO BID 90 days pantoprazole 40 mg PO DAILY 90 days pioglitazone 45 mg PO DAILY 90 days simethicone 180 mg PO BID 30 days sucralfate 1 g PO BID 90 days triamcinolone acetonide 0.1% 1 appl topical DAILY 15 days Tobacco use date assessed: 11/26/23 Dental Screening Dental Screen Date: 11/26/23 Did you have a dental visit in the last 12 months?: No Did you have a dental problem in the last 6 months where you did not have access to dental care?: No Was dental information given to patient?: Patient has dentist HPI HPI Comments History of Present Illness Details This is a 58-year-old female with diabetes mellitus type 2 and morbid obesity that comes for her physical exam. A1c within goal. She is morbidly obese with a BMI of 40.6 and was advised to diet and exercise to reach BMI goal less than 30. She smokes and want to try the nicotine patches. She was also advised about 1 800 quit now and quit works. Will order a mammogram. Colonoscopy was done less than 10 years and next colonoscopy should be at 60 years old. No chest pain or shortness of breath. She also has mild major depression I will start her on bupropion. [facility] Medical History (Updated 11/26/23 @ 17:17 by Nolvia Bah MD) Ascending aorta enlargement Hospital discharge follow-up Morbid obesity with BMI of 40.0-44.9, adult Precordial chest pain Iron deficiency anemia Right knee pain Left knee pain Type 2 diabetes mellitus with unspecified complications B12 deficiency Hypovitaminosis D Mixed hyperlipidemia Diabetes mellitus Surgical History History of laparoscopic cholecystectomy Family History Father Leukemia Mother Diabetes Hypertension CVD (cardiovascular disease) Sister Throat cancer Social History Housing: Apartment Alcohol intake: never Patient Tobacco Use Status: Current everyday Tobacco user Tobacco use type: Cigarette Cigarettes Per Day: 10 e-Cigarette/Vaping Use: Never Used Second Hand Smoke Exposure: No service: No Current occupational status: disabled Cognitive needs: No Hearing needs: No Vision needs: Yes Questionnaire PHQ-9 Over the last 2 weeks, how often have you been bothered by any of the following problems? 1. Little interest or pleasure in doing things: several days 2. Feeling down, depressed, or hopeless: more than half the days 3. Trouble falling or staying asleep, or sleeping too much: not at all 4. Feeling tired or having little energy: several days 5. Poor appetite or overeating: more than half the days 6. Feeling bad about yourself - or that you are a failure or have let yourself or your family down: more than half the days 7. Trouble concentrating on things, such as reading the newspaper or watching television: several days 8. Moving or speaking so slowly that other people could have noticed. Or the opposite - being so fidgety or restless that you have been moving around a lot more than usual: not at all 9. Thoughts that you would be better off or of hurting yourself in some way: not at all Total score: 9 Depression Screening Interpretation: Positive Depression Screening Follow-up: Existing condition and In treatment Depression Screening Done: Yes 27688 - PHQ-9 Billing: Yes Source: Developed by Drs. Davidson Villarreal, Noreen Diego, Ezekiel Herrera and colleagues, with an educational jaxon from [employer]. Thrive Questionnaire Date Thrive assessed: 11/26/23 I am a: Patient What is your living situation today?: I have a steady place to live Within the past 12 months, did the food you bought not last and you didn't have the money to get more?: Never true Within the past 12 months, did you worry whether your food would run out before you got money to buy more?: Never true Do you have trouble paying for medicines?: No Do you have trouble getting transportation to medical appointments?: No Do you have trouble paying your heating and electricity bill?: No Do you have trouble taking care of your child, family member or friend?: No Do you have trouble with day-to-day activities such as bathing, preparing meals, shopping, managing finances, etc.?: No Are you currently unemployed and looking for a job?: No Are you interested in more education?: No Please select the resources that you would like help with: None Currently or been in a relationship where the following occur: no concerns reported THRIVE Score: 0 AUDIT C Alcohol Use Questionnaire (AUDIT-C) 1. How often do you have a drink containing alcohol?: Never Total Score: 0 CHRISTIANO-7 AMB Questionnaire CHRISTIANO-7 Date CHRISTIANO - 7 assessed: 11/26/23 Feeling nervous, anxious, or on edge: 1 = Several days Not being able to stop or control worryin = Not at all Worrying too much about different things: 2 = More than half the days Trouble relaxin = Several days Being so restless that it is hard to sit still: 0 = Not at all Becoming easily annoyed or irritable: 3 = Nearly every day Feeling afraid as if something awful might happen: 1 = Several days Total CHRISTIANO-7 score (0-4 normal; 5-9 mild; 10-14 moderate; 15-21 severe): 8 Source: Developed by Drs. Davidson Villarreal, Ezekiel Gates and colleagues, with an educational jaxon from [employer]. CHRISTIANO-7 Assessment Billing CHRISTIANO-7 Assessment Tool: CHRISTIANO-7 Assessment 86632 Review of Systems Const All systems reviewed & are unremarkable except as noted in HPI and below Card Denies chest pain at rest, Denies chest pain with activity, Denies edema, Denies irregular heart rhythm, Denies claudication, Denies dyspnea, Denies dyspnea on exertion, Denies orthopnea, Denies paroxysmal nocturnal dyspnea and Denies slow heart rate Resp Denies cough, Denies dyspnea and Denies dyspnea on exertion GI Denies abdominal pain, Denies change in bowel habits, Denies excessive flatus, Denies nausea and Denies vomiting Denies urinary incontinence, Denies urinary hesitancy and Denies urinary urgency Neuro Denies behavioral changes, Denies confusion and Denies lack of coordination Psych Denies behavioral changes and Denies confusion Physical exam (Primary Care) Vital Signs: Last Vital Signs BP 140/70 H 11/26/23 13:58 BMI result Body Mass Index 40.6 Tobacco/Smoking Status: Tobacco use Status Tobacco use date assessed 11/26/23 11/26/23 14:06 Patient Tobacco Use Status Current everyday Tobacco 11/26/23 14:06 Tobacco use type Cigarette 11/26/23 14:06 e-Cigarette/Vaping Use Never Used 11/26/23 14:06 PHQ-9: PHQ-9 Score PHQ-9: Total score 9 11/26/23 14:19 Depression Screening Interpretation: Positive Depression Screening Follow-up: Existing condition and In treatment Thrive Assessment: Date of Thrive Assessment Date Thrive assessed 11/26/23 11/26/23 14:06 Currently or been in a relationship where the following occur: no concerns reported Const General: No confusion Orientation/consciousness: patient oriented x3 and No confusion HENMT Head: Yes normal to inspection, Yes normocephalic and Yes atraumatic Ears: external ears normal Eyes General: appearance normal, both eyes and all related structures Eyelids: Yes eyelids normal Conjunctivae: conjunctivae normal Neck Neck: Yes normal visual inspection and Yes supple Resp Effort & Inspection: normal respiratory effort Auscultation: clear to auscultation bilaterally Cardio Jugular venous distension: no JVD Rate: regular rate Rhythm: regular rhythm Heart sounds: S1 normal heart sound present and S2 normal heart sound present GI Inspection: Yes normal to inspection Palpation (GI): Soft to palpation and nontender Auscultation: normal bowel sounds Skin General skin exam: no rashes or lesions noted Neuro General: patient oriented x3, no focal motor deficits and No confusion Extrem General: Yes full ROM Psych Appearance: grossly normal Results AMB Hemoglobin A1c AMB Hemoglobin A1c 6.6 % Last Edit by JOSE Serrano on 11/26/23 14:06 Results Reviewed Results Reviewed: Laboratory Last Values Hgb A1c (Clinic) 6.6 % (4.0-6.0) H 11/26/23 13:54 Assessment and Plan Assessment & Plan (1) Physical exam: Code(s): Z00.00 - Encounter for general adult medical examination without abnormal findings Plan: Repeat in a year. (2) Morbid obesity with BMI of 40.0-44.9, adult: Code(s): E66.01 - Morbid (severe) obesity due to excess calories; Z68.41 - Body mass index [BMI] 40.0-44.9, adult Plan: Start diet and exercise. BMI goal is less than 30. (3) Diabetes mellitus: Code(s): E11.9 - Type 2 diabetes mellitus without complications Qualifiers: Diabetes mellitus type: type 2 Diabetes mellitus terminal manager insulin use: without skilled nursing use Diabetes mellitus complication status: without complication Qualified Code(s): E11.9 - Type 2 diabetes mellitus without complications Plan: Continue Trulicity, metformin and Actos. A1c goal is equal or less than 7% (4) Mild major depression: Code(s): F32.0 - Major depressive disorder, single episode, mild Plan: Start bupropion. Orders: Orders AMB Hemoglobin A1c Today E11.8 - Type 2 diabetes mellitus with unspecified complications MM screening mammo BI Today Z12.31 - Encounter for screening mammogram for malignant neoplasm of breast Microalbumin, Random (w Creat) 4 Months E11.9 - Type 2 diabetes mellitus without complications Lipid Panel 4 Months E78.5 - Hyperlipidemia, unspecified Vitamin D 25-OH Total 4 Months E55.9 - Vitamin D deficiency, unspecified Comprehensive [place]. Panel Fast 4 Months I10 - Essential (primary) hypertension Medications: New nicotine 1 patch transdermal DAILY 28 days 28 ea 0RF bupropion HCl XL 150 mg PO QAM 90 days 90 tabs 0RF Refilled ezetimibe 10 mg PO DAILY 90 tabs 1RF E78.2 - Mixed hyperlipidemia triamcinolone acetonide 0.1% 1 appl topical DAILY 15 days 80 grams 1RF L40.9 - Psoriasis, unspecified diclofenac sodium 1% (Arthritis Pain (diclofenac)) apply to single elbow, wrist or hand; for hand includes palm/fingers/back of hand 2 grams topical QID 30 days PRN 100 grams 1RF pain Coding Level of Care Code Est Pt Prev Care 40-64y(82875) Diagnoses Physical exam Z00.00 Morbid obesity with BMI of 40.0-44.9, adult E66.01; Z68.41 Type 2 diabetes mellitus without complication, without long-term current use of insulin E11.9 Diabetes mellitus type: type 2 Diabetes mellitus skilled nursing insulin use: without skilled nursing use Diabetes mellitus complication status: without complication Mild major depression F32.0 Additional Codes CHRISTIANO-7 Assessment Billing - CHRISTIANO-7 Assessment Tool: CHRISTIANO-7 Assessment [id number] ([id number]) Time Spent (min) 35
== END 2023-11-26 14:35 | disposition home or self-care (01) ==
LOC: HO.HMGH 13:52
PROVIDERS: PCP Internal Medicine; Visit Provider Internal Medicine
DX: Z00.00 Encounter for general adult medical examination without abnormal findings (principal); E66.01 Morbid (severe) obesity due to excess calories; Z68.41 Body mass index [BMI] 40.0-44.9, adult; F32.0 Major depressive disorder, single episode, mild; E11.8 Type 2 diabetes mellitus with unspecified complications
CPT/HCPCS: 83036; 99396

== ENCOUNTER 2023-12-02 08:33 | Outpatient (REF) | payer OTHER, SELFPAY ==
--- NOTE | ~2023-12-02 | MM_ITS ---
EXAMINATION: MM SCREENING DIGITAL BREAST TOMOSYNTHESIS, BILATERAL CLINICAL INFORMATION: Screening. Asymptomatic. COMPARISON: Mammography: This study is compared with prior exams dating back to 2016. TECHNIQUE: Digital breast tomosynthesis is performed in both the craniocaudal and mediolateral oblique views along with computer-aided detection (CAD). Synthesized 2D images are generated from the tomosynthesis. FINDINGS: There are scattered areas of fibroglandular density (ACR BI-RADS breast composition Category b). There are no significant masses, abnormal calcifications, or other abnormalities. MM/MM tomosynthesis screening BI IMPRESSION: No mammographic evidence of malignancy. ASSESSMENT: BI-RADS BI-RADS 1 - Negative RECOMMENDATION: Routine annual mammography screening. 1 year F/U This examination should not preclude the clinical evaluation of a suspicious palpable abnormality. This patient's information was entered into a reminder system with a target due date for their next mammogram.
== END 2023-12-02 08:34 | disposition home or self-care (01) ==
LOC: HO.MAMMO 08:33
PROVIDERS: PCP Internal Medicine; Visit Provider Internal Medicine
DX: Z12.31 Encounter for screening mammogram for malignant neoplasm of breast (principal)
CPT/HCPCS: 77063; 77067

== ENCOUNTER → 2023-12-02 09:15 | Outpatient (BNV) | payer OTHER, SELFPAY | PROVIDERS: PCP Internal Medicine; Visit Provider Radiology Diagnostic Radiology | DX: Z12.31 Encounter for screening mammogram for malignant neoplasm of breast (principal) | CPT/HCPCS: 77063; 77067 ==

== ENCOUNTER 2024-05-06 09:23 | Outpatient (REF) | payer OTHER, SELFPAY ==
[2024-05-06 11:11] LABS: Alanine Aminotransferase 27 U/L (0-31); Albumin Level 4.6 g/dL (3.5-5.0); Alkaline Phosphatase 147 U/L (39-117); Anion Gap 13 (12-20); Aspartate Amino Transferase 19 U/L (5-31); Bilirubin Total 0.3 mg/dL (0.0-1.0); Blood Urea Nitrogen 13 mg/dL (9-16); Calcium 10.3 mg/dL (8.4-10.2); Carbon Dioxide 26 mmol/L (22-29); Chloride 106 mmol/L (96-108); Cholesterol 308 mg/dL (<200); Estimated Glomerular Filt Rate > 60; Glucose Fasting 134 mg/dL (60-99); HDL Cholesterol 32 mg/dL (>40); Potassium 4.7 mmol/L (3.3-5.1); Sodium 140 mmol/L (135-145); Total Protein 7.9 g/dL (6.5-8.0); Triglycerides 699 mg/dL (<150)
[2024-05-06 11:20] LABS: Microalbum/Creatinine Ratio Ur 42.9 ug/mg cr (<30)
[2024-05-06 11:25] LABS: Vitamin D 25-OH Total 14.7 ng/mL (>30)
== END 2024-05-06 09:24 | disposition home or self-care (01) ==
LOC: HO.LAB 09:23
PROVIDERS: PCP Internal Medicine; Visit Provider Internal Medicine
DX: I10 Essential (primary) hypertension (principal); E55.9 Vitamin D deficiency, unspecified; E78.5 Hyperlipidemia, unspecified; E11.9 Type 2 diabetes mellitus without complications
CPT/HCPCS: 36415; 80053; 80061; 82043; 82306; 82570

== ENCOUNTER 2024-06-24 10:03 | Outpatient (AMB) | payer OTHER, SELFPAY ==
[2024-06-24 10:19] VITALS: BP 132/80; BMI 38.8
--- NOTE | 2024-06-24 10:19 | MHC.PC.OV ---
Vital Signs 06/24/24 10:19 Height 5 ft 2 in Weight 212 lb BMI 38.8 BP 132/80 Blood Pressure Location Lt brachial Position Sitting Intake Visit Reasons: 4 month f/u DM/MED Intake Note: Patient here for a 4 month follow up DM, Medication Shear Operator Automatic Required: No Accompanied by: Self / Same As Patient Allergies aspirin [Aspirin] Allergy (Mild, Verified 06/24/24 10:32) SWELLING Medication List - Last Reconciled 06/24/24 by Nolvia Bah MD atorvastatin 80 mg PO DAILY 90 days blood sugar diagnostic (FreeStyle Lite Strips) Use 1 test strip twice a day blood sugar diagnostic Use 1 test strip twice a day bupropion HCl XL 150 mg PO QAM 90 days cholecalciferol (vitamin D3) 25 mcg PO DAILY 90 days diclofenac sodium 1% (Arthritis Pain (diclofenac)) 2 grams topical QID PRN 30 days dulaglutide (Trulicity) 3 mg (0.5 mL) subcut QWEEK ezetimibe 10 mg PO DAILY fenofibrate micronized 200 mg PO DAILY 90 days icosapent ethyl (Vascepa) 2 grams (2 x 1 gram) PO BID lancets Use 1 lancet twice a day as needed lisinopril 10 mg PO DAILY 90 days metformin ER 500 mg PO BID 90 days nicotine 1 patch transdermal DAILY 28 days pantoprazole 40 mg PO DAILY 90 days pioglitazone 45 mg PO DAILY 90 days simethicone 180 mg PO BID 30 days sucralfate 1 g PO BID 90 days triamcinolone acetonide 0.1% 1 appl topical DAILY 15 days Tobacco use date assessed: 11/26/23 Dental Screening Dental Screen Date: 06/24/24 Did you have a dental visit in the last 12 months?: No Did you have a dental problem in the last 6 months where you did not have access to dental care?: No Was dental information given to patient?: Patient has dentist HPI HPI Comments History of Present Illness Details The patient is a 58-year-old female presenting with diabetes monitoring, high cholesterol management, and chronic disease control. She has a history of Type 2 Diabetes Mellitus, with an HbA1c recently noted at 6.5%. Previous management has included the administration of metformin twice daily and Trulicity 3mg weekly. She also has a history of hyperlipidemia with elevated cholesterol levels; the most recent lab results from April showed a total cholesterol of 308 mg/dL, triglycerides at 699 mg/dL, and the LDL could not be calculated. Alongside Atorvastatin 80 mg and Ezetimibe 10 mg, she is also on Fenofibrate and was advised to start taking statins at night to possibly improve efficacy. Hypertension is managed with Lisinopril 10 mg, and vitamin D deficiency is addressed with daily supplements due to levels being at 14.7 ng/mL. Furthermore, she experiences controlled depression managed with Bupropion 150 mg. Despite cigarette use disorder, with a history of smoking that has been reduced to approximately 5 cigarettes daily, she expresses readiness to quit, acknowledging potential withdrawal symptoms. [facility] Medical History (Updated 06/24/24 @ 10:46 by Nolvia Bah MD) Ascending aorta enlargement Hospital discharge follow-up Morbid obesity with BMI of 40.0-44.9, adult Precordial chest pain Iron deficiency anemia Right knee pain Left knee pain Type 2 diabetes mellitus with unspecified complications B12 deficiency Hypovitaminosis D Mixed hyperlipidemia Diabetes mellitus Surgical History History of laparoscopic cholecystectomy Family History Father Leukemia Mother Diabetes Hypertension CVD (cardiovascular disease) Sister Throat cancer Social History (Updated 06/24/24 @ 10:38 by Nolvia Bah MD) Housing: Apartment Alcohol intake: never Patient Tobacco Use Status: Current everyday Tobacco user Tobacco use type: Cigarette Cigarettes Per Day: 5 e-Cigarette/Vaping Use: Never Used Second Hand Smoke Exposure: No service: No Current occupational status: disabled Cognitive needs: No Hearing needs: No Vision needs: Yes Questionnaire Thrive Questionnaire Date Thrive assessed: 11/26/23 CHRISTIANO-7 AMB Questionnaire CHRISTIANO-7 Date CHRISTIANO - 7 assessed: 11/26/23 Source: Developed by Drs. Davidson Villarreal, Noreen Diego, Ezekiel Herrera and colleagues, with an educational jaxon from [employer] ([employer]). Review of Systems Const All systems reviewed & are unremarkable except as noted in HPI and below Card Denies chest pain at rest, Denies chest pain with activity, Denies edema, Denies irregular heart rhythm, Denies claudication, Denies dyspnea, Denies dyspnea on exertion, Denies orthopnea, Denies paroxysmal nocturnal dyspnea and Denies slow heart rate Resp Denies cough, Denies dyspnea and Denies dyspnea on exertion GI Denies abdominal pain, Denies change in bowel habits, Denies excessive flatus, Denies nausea and Denies vomiting Denies urinary incontinence, Denies urinary hesitancy and Denies urinary urgency Musc Denies abnormal gait, Denies atrophy, Denies deformity and Denies limited range of motion Skin/Breast Denies bleeding lesions, Denies changing lesions and Denies rash Neuro Denies abnormal gait and Denies lack of coordination Physical exam (Primary Care) Vital Signs: Last Vital Signs BP 132/80 06/24/24 10:19 BMI result Body Mass Index 38.8 BMI Assessment/Plan discussion: High BMI High, discussed plan: lifestyle, weight reduction, dietary and physical activity Tobacco/Smoking Status: Tobacco use Status Tobacco use date assessed 11/26/23 06/24/24 10:21 Patient Tobacco Use Status Current everyday Tobacco 06/24/24 10:38 Tobacco use type Cigarette 06/24/24 10:38 e-Cigarette/Vaping Use Never Used 06/24/24 10:38 Are you ready to quit: Yes Tobacco cessation counseling provided: Yes Items discussed: Nicotine replacement and [employer]uitWorks Relapse Prevention: discussed the importance of a supportive environment, discussed negative mood or depression after quitting, weight gain after smoking is common and discussed dietary, exercise and/or lifestyle changes Number of minutes spent counselin CPT code: 55178 - 4-10 Minutes Thrive Assessment: Date of Thrive Assessment Date Thrive assessed 11/26/23 06/24/24 10:21 Resp Effort & Inspection: normal respiratory effort Auscultation: clear to auscultation bilaterally Cardio Jugular venous distension: no JVD Rate: regular rate Rhythm: regular rhythm Heart sounds: S1 normal heart sound present and S2 normal heart sound present Extrem General: Yes full ROM Office Procedures Flu Questionnaire Does the patient have a severe egg allergy?: No Does the patient have severe life threatening allergies?: No Does the patient have a fever or illness today?: No Has the patient ever had Guillain-[place] Syndrome?: No Has the patient ever had any past reaction to a flu shot?: No Results AMB Hemoglobin A1c AMB Hemoglobin A1c 6.5 % Last Edit by JOSE Serrano on 06/24/24 10:30 Immunizations Fluarix Triv (PF) 45 mcg (15 mcg x 3)/0.5 mL IM syringe Performing Provider: Nolvia Bah MD Performing Location: [facility] [place] [facility] Administered by: JOSE Serrano on 06/24/24 10:47 Dose Route Admin Location Dispensed Lot Number Expiration Date NDC Store Lead 0.5 mL IM Right Deltoid 0.5 mL [id number] 01/17/25 [id number] [facility] VIS Given Date VIS Provided VIS Publication Date 06/24/24 Single Vaccine 21 Eligibility Eligibility Date Funding Source Not [facility] Eligible 06/24/24 Private Results Reviewed Results Reviewed: Laboratory Last Values Hgb A1c (Clinic) 6.5 % (4.0-6.0) H 06/24/24 10:13 Coding Level of Care Code Est Pt Level 4 (99554) Complex EM visit Add On G2211 Diagnoses Mild major depression F32.0 Essential hypertension I10 Type 2 diabetes mellitus without complication, without long-term current use of insulin E11.9 Diabetes mellitus complication status: without complication Diabetes mellitus assistant terminal manager insulin use: without assistant terminal manager use Diabetes mellitus type: type 2 Mixed hyperlipidemia E78.2 Hypovitaminosis D E55.9 Additional Codes Vital Signs *Quality* - CPT code: 35086 - 4-10 Minutes ([id number]) Time Spent (min) 23 Assessment & Plan Assessment & Plan (1) Mild major depression: Code(s): F32.0 - Major depressive disorder, single episode, mild Category: Medical (2) Essential hypertension: Code(s): I10 - Essential (primary) hypertension Category: Medical (3) Diabetes mellitus: Code(s): E11.9 - Type 2 diabetes mellitus without complications Category: Medical Qualifiers: Diabetes mellitus complication status: without complication Diabetes mellitus assistant terminal manager insulin use: without assistant terminal manager use Diabetes mellitus type: type 2 Qualified Code(s): E11.9 - Type 2 diabetes mellitus without complications (4) Mixed hyperlipidemia: Code(s): E78.2 - Mixed hyperlipidemia Category: Medical (5) Hypovitaminosis D: Code(s): E55.9 - Vitamin D deficiency, unspecified Category: Medical Plan - Diabetes Mellitus: Continue metformin and Trulicity; monitor HbA1c and blood glucose regularly. - Hyperlipidemia: Advise taking Atorvastatin and Ezetimibe at night; continue Fenofibrate and initiate lifestyle modifications, including low-cholesterol diet; reassess lipid profile in 4 months. - Hypertension: Maintain current regimen with Lisinopril. - Depression: Continue Bupropion 150 mg; monitor mood changes and adjust as necessary. - Vitamin D Deficiency: Continue current vitamin D supplementation. - Cigarette Use Disorder: Support smoking cessation with lifestyle modification recommendations. Patient was informed and verbally consented to the use of an ambient scribe for clinic note documentation during this visit. I discussed with the patient her current diagnoses including diabetes, hyperlipidemia, hypertension, depression, vitamin D deficiency, and smoking habits. For diabetes, I recommended continuing with the current medications and consistent monitoring to maintain controlled HbA1c levels. I advised taking cholesterol medication at night, highlighting potential benefits, and stressed dietary adjustments and lifestyle changes for better lipid control. I reinforced the continuation of the current antihypertensive and antidepressive regimens. I encouraged her to persist with vitamin D supplementation. The patient expressed willingness to quit smoking, and I provided guidance on withdrawal management and advised use of online resources like [employer] for support. Informed consent was obtained for all treatment recommendations, and I affirmed patient understanding of the plan moving forward. Orders: Orders Lipid Panel 4 Months E78.5 - Hyperlipidemia, unspecified Vitamin D 25-OH Total 4 Months E55.9 - Vitamin D deficiency, unspecified AMB Hemoglobin A1c Today E11.8 - Type 2 diabetes mellitus with unspecified complications Influenza [id number] Immunization Today Z23 - Encounter for immunization Microalbumin, Random (w Creat) 4 Months R80.9 - Proteinuria, unspecified Comprehensive [place]. Panel Fast 4 Months E11.9 - Type 2 diabetes mellitus without complications Medications: Discontinued icosapent ethyl (Vascepa) Discontinued Reason: Patient Completed Course 2 grams (2 x 1 gram) PO BID 60 caps 5RF Patient Instructions: - Take cholesterol medications, Atorvastatin and Ezetimibe, at night. - Maintain a low-cholesterol diet. - Continue all current medications as prescribed. - Monitor blood glucose levels regularly. - Follow up with lipid panel testing in 4 months. - Engage with smoking cessation resources and prepare for potential challenges in quitting. - Report any mood changes or concerns with depression medication. - Ensure consistent intake of vitamin D supplements.
== END 2024-06-24 10:48 | disposition home or self-care (01) ==
PROVIDERS: PCP Internal Medicine; Visit Provider Internal Medicine
DX: F32.0 Major depressive disorder, single episode, mild (principal); I10 Essential (primary) hypertension; E11.9 Type 2 diabetes mellitus without complications; E78.2 Mixed hyperlipidemia; E55.9 Vitamin D deficiency, unspecified; E11.8 Type 2 diabetes mellitus with unspecified complications; Z23 Encounter for immunization

== ENCOUNTER → 2024-06-24 10:03 | Outpatient (BNVA) | payer OTHER, SELFPAY | PROVIDERS: PCP Internal Medicine; Visit Provider Internal Medicine | DX: Z23 Encounter for immunization (principal); F32.0 Major depressive disorder, single episode, mild; I10 Essential (primary) hypertension; E78.2 Mixed hyperlipidemia; E55.9 Vitamin D deficiency, unspecified; E11.9 Type 2 diabetes mellitus without complications | CPT/HCPCS: 83036; 90471; 90656; 99212 ==

== ENCOUNTER 2024-10-28 09:18 | Outpatient (REF) | payer OTHER, SELFPAY ==
--- OUTSIDE RECORDS SUMMARY | 2024-10-28 10:08 | XMS_ITS | Clinical Summary ---
Author Organization [facility] Address [address] [place] [address] Phone Care Team Providers Care Size Marker Name Role Phone Nolvia Bah MD Primary Care Provider [phone] Allergies Active Allergy Reactions Criticality Noted Date Comments Aspirin Swelling 07/19/2024 Medications albuterol HFA (PROAIR HFA ; PROVENTIL HFA ; VENTOLIN HFA) 90 mcg/actuation inhalerIndicatio ns:Rhinovirus infection Inhale 2 puffs by mouth every 4 (four) hours if needed for wheezing. 1 each 07/19/2024 Active Social History Tobacco Use Types Packs/Day Years Used Date Smoking Tobacco: Never Assessed Comments Unknown Sex and Gender Information Value Date Recorded Sex Assigned at Not on file Legal Sex Female 2:27 AM EST Gender Identity Not on file Sexual Orientation Not on file Last Filed Vital Signs Vital Sign Reading Time Taken Comments Blood Pressure 138/70 07/19/2024 11:25 AM EST Pulse 70 07/19/2024 11:25 AM EST Temperature 37.1 ??C (98.8 ??F) 07/19/2024 11:[address] Respiratory Rate 18 07/19/2024 11:25 AM EST Oxygen Saturation 96% 07/19/2024 11:25 AM EST Inhaled Oxygen Concentration - - Weight 96.2 kg (212 lb) 07/19/2024 11:25 AM EST Height 152.4 cm (5') 07/19/2024 11:25 AM EST Body Mass Index 41.4 07/19/2024 11:25 AM EST Plan of Treatment Health Maintenance Due Date Last Done Comments Breast Cancer Screening 1965 Hepatitis B Vaccines (1 of 3 - 19+ 3-dose series) 1984 Cervical Cancer Screening: Pap Smear 1986 Pneumococcal Vaccine: 50+ Years (1 of 1 - PCV) 2015 Zoster Vaccines (1 of 2) 2015 Colorectal Cancer Screening: Colonoscopy 06/23/2022 Depression Screening 06/23/2022 HIV Screening 06/23/2022 Hepatitis C Screening 06/23/2022 Social Influencers of Health Screening 06/23/2022 COVID-19 Vaccine ( - season) 2024 03/20/2021, 02/27/2021 DTaP,Tdap,and Td Vaccines (2 - Td or Tdap) 05/21/2026 05/21/2016 RSV Immunization Adult Patients (1 - 1-dose 75+ series) 2040 Influenza Vaccine Completed 06/24/2024, , 04/30/2022, Additional history exists HIB Vaccines Aged Out No longer eligi ble based on patient's age to complete this topic HPV Vaccines Aged Out No longer eligi ble based on patient's age to complete this topic Hepatitis A Vaccines Aged Out No long er eligible based on patient's age to complete this topic IPV Vaccines Aged Out No longer eligi ble based on patient's age to complete this topic MMR Vaccines Aged Out No longer eligi ble based on patient's age to complete this topic Meningococcal ACWY Vaccine Aged Out N o longer eligible based on patient's age to complete this topic Meningococcal B Vaccine Aged Out No l onger eligible based on patient's age to complete this topic Pneumococcal Vaccine: Pediatrics (0 to 5 Years) and At-Risk Patients (6 to 64 Years) Aged Out No longer eligible based on patient's age to complete this topic RSV Immunization Patients Under 20 months Aged Out No longer eligible based on patient's age to complete this topic Varicella Vaccines Aged Out No longer eligible based on patient's age to complete this topic Insurance MEDICAID - [place] Care Teams Size Marker Relationship Specialty Start Date End Date Nolvia Bah MD [address] [facility] , [address] [facility] D/B/A: [facility] PCP - General Internal Medicine 03/21/21
[2024-10-28 11:24] LABS: Alanine Aminotransferase 36 U/L (0-31); Albumin Level 4.6 g/dL (3.5-5.0); Alkaline Phosphatase 149 U/L (39-117); Anion Gap 14 (12-20); Aspartate Amino Transferase 24 U/L (5-31); Bilirubin Total 0.3 mg/dL (0.0-1.0); Blood Urea Nitrogen 11 mg/dL (9-16); Calcium 10.3 mg/dL (8.4-10.2); Carbon Dioxide 26 mmol/L (22-29); Chloride 107 mmol/L (96-108); Cholesterol 283 mg/dL (<200); Estimated Glomerular Filt Rate > 60; Glucose Fasting 119 mg/dL (60-99); HDL Cholesterol 31 mg/dL (>40); Potassium 4.7 mmol/L (3.3-5.1); Sodium 142 mmol/L (135-145); Total Protein 7.8 g/dL (6.5-8.0); Triglycerides 640 mg/dL (<150)
[2024-10-28 11:32] LABS: Vitamin D 25-OH Total 16.3 ng/mL (>30)
== END 2024-10-28 09:19 | disposition home or self-care (01) ==
LOC: HO.LAB 09:18
PROVIDERS: PCP Internal Medicine; Visit Provider Internal Medicine
DX: E11.9 Type 2 diabetes mellitus without complications (principal); E78.5 Hyperlipidemia, unspecified; E55.9 Vitamin D deficiency, unspecified; R80.9 Proteinuria, unspecified
CPT/HCPCS: 36415; 80053; 80061; 82043; 82306; 82570

== ENCOUNTER 2024-11-09 16:38 | Outpatient (AMB) | payer OTHER, SELFPAY ==
[2024-11-09 16:42] VITALS: BP 152/82; BMI 37.9
--- NOTE | 2024-11-09 16:42 | MHC.PC.OV ---
Vital Signs 11/09/24 16:42 Height 5 ft 2 in Weight 207 lb BMI 37.9 BP 152/82 H Blood Pressure Location Lt brachial Position Sitting Intake Visit Reasons: bp,dm,lipids Intake Note: Patient here for a follow up BP, DM, Lipids Emission Technician Required: No Accompanied by: Self / Same As Patient Allergies aspirin [Aspirin] Allergy (Mild, Verified 11/09/24 16:48) SWELLING Medication List - Last Reconciled 11/09/24 by Nolvia Bah MD atorvastatin 80 mg PO DAILY 90 days blood sugar diagnostic (FreeStyle Lite Strips) Use 1 test strip twice a day blood sugar diagnostic Use 1 test strip twice a day bupropion HCl XL 150 mg PO QAM 90 days cholecalciferol (vitamin D3) 25 mcg PO DAILY 90 days diclofenac sodium 1% (Arthritis Pain (diclofenac)) 2 grams topical QID PRN 30 days dulaglutide (Trulicity) 3 mg (0.5 mL) subcut QWEEK ezetimibe 10 mg PO DAILY fenofibrate micronized 200 mg PO DAILY 90 days lancets Use 1 lancet twice a day as needed lisinopril 10 mg PO DAILY 90 days metformin ER 500 mg PO BID 90 days nicotine 1 patch transdermal DAILY 28 days pantoprazole 40 mg PO DAILY 90 days pioglitazone 45 mg PO DAILY 90 days simethicone 180 mg PO BID 30 days sucralfate 1 g PO BID 90 days triamcinolone acetonide 0.1% 1 appl topical DAILY 15 days Tobacco use date assessed: 11/09/24 Dental Screening Dental Screen Date: 11/09/24 Did you have a dental visit in the last 12 months?: No Did you have a dental problem in the last 6 months where you did not have access to dental care?: No Was dental information given to patient?: Patient has dentist HPI HPI Comments History of Present Illness Details The patient is a 59-year-old female presenting for follow-up regarding her diabetes mellitus, hypertension, and mixed hyperlipidemia. Her recent A1c of 6.2% is within the target range, and her fasting blood glucose is moderately controlled at 119 mg/dL. She is on medical therapy including Trulicity 3 mg weekly for diabetes management. Lipid control has shown a reduction in cholesterol levels, from 308 mg/dL to 283 mg/dL, but triglycerides remain high at 640 mg/dL. The patient is on atorvastatin 80 mg, ezetimibe 10 mg, and fenofibrate 200 mg, though adherence is variable, particularly with atorvastatin and fenofibrate. Her blood pressure management is complicated by inconsistent medication adherence to lisinopril 10 mg, despite occasional elevated readings. The patient controls her gastroesophageal reflux disease with pantoprazole and denies recent symptoms. Psoriasis is a concurrent condition, and she notes eye irritation that may be related. Depression is treated with bupropion, which is also helping weigh control. She smokes approximately five cigarettes daily, acknowledging the challenge in cessation efforts. [facility] Medical History (Updated 11/09/24 @ 17:03 by Nolvia Bah MD) Ascending aorta enlargement Hospital discharge follow-up Morbid obesity with BMI of 40.0-44.9, adult Precordial chest pain Iron deficiency anemia Right knee pain Left knee pain Type 2 diabetes mellitus with unspecified complications B12 deficiency Hypovitaminosis D Mixed hyperlipidemia Diabetes mellitus Surgical History History of laparoscopic cholecystectomy Family History Father Leukemia Mother Diabetes Hypertension CVD (cardiovascular disease) Sister Throat cancer Social History Housing: Apartment Alcohol intake: never Patient Tobacco Use Status: Current everyday Tobacco user Tobacco use type: Cigarette Cigarettes Per Day: 5 e-Cigarette/Vaping Use: Never Used Second Hand Smoke Exposure: No service: No Current occupational status: disabled Cognitive needs: No Hearing needs: No Vision needs: Yes Questionnaire PHQ-9 Over the last 2 weeks, how often have you been bothered by any of the following problems? 1. Little interest or pleasure in doing things: not at all 2. Feeling down, depressed, or hopeless: not at all 3. Trouble falling or staying asleep, or sleeping too much: not at all 4. Feeling tired or having little energy: not at all 5. Poor appetite or overeating: not at all 6. Feeling bad about yourself - or that you are a failure or have let yourself or your family down: not at all 7. Trouble concentrating on things, such as reading the newspaper or watching television: not at all 8. Moving or speaking so slowly that other people could have noticed. Or the opposite - being so fidgety or restless that you have been moving around a lot more than usual: not at all 9. Thoughts that you would be better off or of hurting yourself in some way: not at all Total score: 0 Depression Screening Interpretation: Negative Depression Screening Done: Yes 72541 - PHQ-9 Billing: Yes Source: Developed by Drs. Davidson Villarreal, Noreen Diego, Ezekiel Herrera and colleagues, with an educational jaxon from [employer]. Thrive Questionnaire Date Thrive assessed: 11/09/24 I am a: Patient What is your living situation today?: I have a steady place to live Within the past 12 months, did the food you bought not last and you didn't have the money to get more?: Never true Within the past 12 months, did you worry whether your food would run out before you got money to buy more?: Never true Do you have trouble paying for medicines?: No Do you have trouble getting transportation to medical appointments?: No Do you have trouble paying your heating and electricity bill?: No Do you have trouble taking care of your child, family member or friend?: No Do you have trouble with day-to-day activities such as bathing, preparing meals, shopping, managing finances, etc.?: No Are you currently unemployed and looking for a job?: No Are you interested in more education?: No Please select the resources that you would like help with: None Currently or been in a relationship where the following occur: No concerns reported THRIVE Score: 0 CHRISTIANO-7 AMB Questionnaire CHRISTIANO-7 Date CHRISTIANO - 7 assessed: 11/09/24 Feeling nervous, anxious, or on edge: 0 = Not at all Not being able to stop or control worryin = Not at all Worrying too much about different things: 0 = Not at all Trouble relaxin = Not at all Being so restless that it is hard to sit still: 0 = Not at all Becoming easily annoyed or irritable: 0 = Not at all Feeling afraid as if something awful might happen: 0 = Not at all Total CHRISTIANO-7 score (0-4 normal; 5-9 mild; 10-14 moderate; 15-21 severe): 0 Source: Developed by Drs. Davidson Villarreal, Noreen Diego, Ezekiel Herrera and colleagues, with an educational jaxon from [employer]. CHRISTIANO-7 Assessment Billing CHRISTIANO-7 Assessment Tool: CHRISTIANO-7 Assessment 68142 Review of Systems Const All systems reviewed & are unremarkable except as noted in HPI and below Card Denies chest pain at rest, Denies chest pain with activity, Denies edema, Denies irregular heart rhythm, Denies claudication, Denies dyspnea, Denies dyspnea on exertion, Denies orthopnea, Denies paroxysmal nocturnal dyspnea and Denies slow heart rate Resp Denies cough, Denies dyspnea and Denies dyspnea on exertion GI Denies abdominal pain, Denies change in bowel habits, Denies excessive flatus, Denies nausea and Denies vomiting Denies urinary incontinence, Denies urinary hesitancy and Denies urinary urgency Musc Denies abnormal gait, Denies atrophy, Denies deformity and Denies limited range of motion Skin/Breast Denies bleeding lesions, Denies changing lesions and Denies rash Neuro Denies abnormal gait and Denies lack of coordination Physical exam (Primary Care) Vital Signs: Last Vital Signs BP 152/82 H 11/09/24 16:42 BMI result Body Mass Index 37.9 BMI Assessment/Plan discussion: High BMI High, discussed plan: lifestyle, weight reduction, dietary and physical activity Tobacco/Smoking Status: Tobacco use Status Tobacco use date assessed 11/09/24 11/09/24 16:46 Patient Tobacco Use Status Current everyday Tobacco 11/09/24 16:46 Tobacco use type Cigarette 11/09/24 16:46 e-Cigarette/Vaping Use Never Used 11/09/24 16:46 Are you ready to quit: No Tobacco cessation counseling provided: Yes Items discussed: Nicotine replacement Relapse Prevention: discussed the importance of a supportive environment, discussed extending NRT, discussed negative mood or depression after quitting, weight gain after smoking is common and discussed dietary, exercise and/or lifestyle changes Number of minutes spent counselin CPT code: 26150 - 4-10 Minutes PHQ-9: PHQ-9 Score PHQ-9: Total score 0 11/09/24 16:47 Depression Screening Interpretation: Negative Thrive Assessment: Date of Thrive Assessment Date Thrive assessed 11/09/24 11/09/24 16:46 Currently or been in a relationship where the following occur: No concerns reported Resp Effort & Inspection: normal respiratory effort Auscultation: clear to auscultation bilaterally Cardio Jugular venous distension: no JVD Rate: regular rate Rhythm: regular rhythm Heart sounds: S1 normal heart sound present and S2 normal heart sound present Extrem General: Yes full ROM Results AMB Hemoglobin A1c AMB Hemoglobin A1c 6.2 % Last Edit by JOSE Serrano on 11/09/24 16:49 Coding Level of Care Code Est Pt Level 4 (50048) Complex EM visit Add On G2211 Diagnoses Mild major depression F32.0 Essential hypertension I10 Gastroesophageal reflux disease without esophagitis K21.9 Esophagitis presence: without esophagitis Psoriasis L40.9 Type 2 diabetes mellitus with unspecified complications E11.8 Mixed hyperlipidemia E78.2 Additional Codes PHQ-9 - 09645 - PHQ-9 Billing: Yes ([id number]) CHRISTIANO-7 Assessment Billing - CHRISTIANO-7 Assessment Tool: CHRISTIANO-7 Assessment 53937 ([id number]) Vital Signs *Quality* - CPT code: 73806 - 4-10 Minutes ([id number]) Time Spent (min) 25 Assessment & Plan Assessment & Plan (1) Mild major depression: Code(s): F32.0 - Major depressive disorder, single episode, mild Category: Medical (2) Essential hypertension: Code(s): I10 - Essential (primary) hypertension Category: Medical (3) GERD (gastroesophageal reflux disease): Code(s): K21.9 - Gastro-esophageal reflux disease without esophagitis Category: Medical Qualifiers: Esophagitis presence: without esophagitis Qualified Code(s): K21.9 - Gastro-esophageal reflux disease without esophagitis (4) Psoriasis: Code(s): L40.9 - Psoriasis, unspecified Category: Medical (5) Type 2 diabetes mellitus with unspecified complications: Code(s): E11.8 - Type 2 diabetes mellitus with unspecified complications Category: Medical (6) Mixed hyperlipidemia: Code(s): E78.2 - Mixed hyperlipidemia Category: Medical Plan To manage the patient's diabetes, hyperlipidemia, and hypertension, it is essential to emphasize medication adherence and lifestyle interventions. Continuing Trulicity 3 mg weekly for diabetes while improving atorvastatin and fenofibrate intake for lipid management is vital, given the elevated triglycerides. Consistent lisinopril intake is rust to controlling blood pressure, and adjustments will be considered as needed. For psoriasis and ocular symptoms possibly associated, monitoring and appropriate topical management will be necessary. Depression treatment will proceed with bupropion. Promoting strategies for smoking cessation will be prioritized to enhance overall cardiovascular and dermatological health. Regular follow-up appointments will include monitoring lipid levels, liver function, and blood pressure to ensure the effectiveness of treatment plans. Patient was informed and verbally consented to the use of an ambient scribe for clinic note documentation during this visit. During our discussion, I emphasized the importance of medication adherence, particularly for controlling lipid levels and blood pressure, given the high triglyceride levels and occasional hypertension the patient experiences. I reiterated the need to consistently take atorvastatin, fenofibrate, and lisinopril, describing the risks of cardiovascular events if uncontrolled. I outlined the benefits of ongoing use of Trulicity for managing diabetes and improving lifestyle factors. For psoriasis, recommendations included maintaining current management and evaluating any exacerbations or associated symptoms. We discussed the smoking cessation benefits and strategies, including the impact on cardiovascular and psoriasis outcomes. Follow-up laboratory evaluations and visits for monitoring were advised, and plans for lifestyle adjustments were encouraged to improve overall health and disease management. Orders: Orders Comprehensive [place]. Panel Fast 4 Months I10 - Essential (primary) hypertension AMB Hemoglobin A1c Today E11.8 - Type 2 diabetes mellitus with unspecified complications Lipid Panel 4 Months E78.5 - Hyperlipidemia, unspecified Microalbumin, Random (w Creat) 4 Months R80.9 - Proteinuria, unspecified Vitamin D 25-OH Total 4 Months E55.9 - Vitamin D deficiency, unspecified Medications: Refilled lisinopril 10 mg PO DAILY 90 days 90 tabs 1RF simethicone after meals 180 mg PO BID 30 days 60 caps 6RF abdominal distention K21.9 - Gastro-esophageal reflux disease without esophagitis cholecalciferol (vitamin D3) 25 mcg PO DAILY 90 days 90 caps 2RF E55.9 - Vitamin D deficiency, unspecified fenofibrate micronized 200 mg PO DAILY 90 days 90 caps 3RF ezetimibe 10 mg PO DAILY 90 tabs 1RF E78.2 - Mixed hyperlipidemia dulaglutide (Trulicity) 3 mg (0.5 mL) subcut QWEEK 2 mL 5RF atorvastatin 80 mg PO DAILY 90 days 90 tabs 3RF bupropion HCl XL 150 mg PO QAM 90 days 90 tabs 0RF metformin ER 500 mg PO BID 90 days 180 tabs 3RF pantoprazole 40 mg PO DAILY 90 days 90 tabs 1RF pioglitazone 45 mg PO DAILY 90 days 90 tabs 1RF E11.8 - Type 2 diabetes mellitus with unspecified complications triamcinolone acetonide 0.1% 1 appl topical DAILY 15 days 80 grams 1RF L40.9 - Psoriasis, unspecified Discontinued sucralfate Discontinued Reason: Patient Completed Course 1 g PO BID 90 days 180 tabs 1RF Patient Instructions: - Continue taking Trulicity as prescribed for diabetes management. - Ensure regular intake of atorvastatin, fenofibrate, and lisinopril as directed. - Stick to pantoprazole for controlling acid reflux symptoms. - Explore smoking cessation options and make efforts to quit smoking. - Attend follow-up appointments for blood work and condition monitoring. - Report any new or worsening symptoms, especially regarding psoriasis or blood pressure concerns.
--- OUTSIDE RECORDS SUMMARY | 2024-11-09 18:56 | XMS_ITS | Clinical Summary ---
Author Organization [facility] Address [address] [place] [address] Phone Care Team Providers Care Injection Molding Technician Name Role Phone Nolvia Bah MD Primary Care Provider [phone] Allergies Active Allergy Reactions Criticality Noted Date [...] topic Insurance MEDICAID - [place] Care Teams Injection Molding Technician Relationship Specialty Start Date End Date Nolvia Bah MD [address] [facility] , [address] [facility] D/B/A: [facility] PCP - General Internal Medicine 03/21/21
== END 2024-11-09 17:02 | disposition home or self-care (01) ==
LOC: HO.HMCH 16:38
PROVIDERS: PCP Internal Medicine; Visit Provider Internal Medicine
DX: F32.0 Major depressive disorder, single episode, mild (principal); I10 Essential (primary) hypertension; K21.9 Gastro-esophageal reflux disease without esophagitis; L40.9 Psoriasis, unspecified; E11.8 Type 2 diabetes mellitus with unspecified complications; E78.2 Mixed hyperlipidemia

== ENCOUNTER → 2024-11-09 16:38 | Outpatient (BNVA) | payer OTHER, SELFPAY | PROVIDERS: PCP Internal Medicine; Visit Provider Internal Medicine | DX: E11.8 Type 2 diabetes mellitus with unspecified complications (principal); I10 Essential (primary) hypertension; E78.2 Mixed hyperlipidemia; F32.0 Major depressive disorder, single episode, mild; K21.9 Gastro-esophageal reflux disease without esophagitis; L40.9 Psoriasis, unspecified; Z79.85 Long-term (current) use of injectable non-insulin antidiabetic drugs; Z79.899 Other long term (current) drug therapy | CPT/HCPCS: 83036; 96127; 99212 ==